=== PATIENT | female | born 1930 | race Caucasian/White ===

== ENCOUNTER → 2017-03-19 | Outpatient (CLI) | payer OTHER ==
[~2017-03-19] MED LIST: CALC500C70 PO; CHOL100010 PO; CLC100X PO; GABA1CAP PO; GLIM4TAB PO; INSDGI SC; LEVO50TA6 PO; LISI40TA PO; METO100T44 PO; MULTTAB58 PO; NIFE1TAB53 PO; OMEP20TA PO; POLY335025; PSYL58.611 PO; SITA50TA3 PO
--- NOTE | 2017-03-19 14:06 | DIAGNOSTIC IMAGING REPORT ---
ULTRASOUND OF THE CAROTID ARTERIES CLINICAL HISTORY: R EYE VISION LOSS COMPARISON STUDY: None. TECHNIQUE: Real-time, grayscale, and color Doppler sonography of the carotid arteries was performed. Imaging reviewed in the transverse and longitudinal planes. NASCET criteria was utilized for stenosis calcification. FINDINGS: There is moderate atherosclerotic plaque present bilaterally. The peak systolic velocity within the right internal carotid artery is 98 cm/sec. The systolic velocity ratio of right internal to common carotid artery is 1.4. The peak systolic velocity within the left internal carotid artery is 63 cm/sec. The systolic velocity ratio left internal to common carotid artery is 0.8. Antegrade flow is seen in the vertebral arteries. The external carotid arteries are patent. Blood pressure in the right arm measured 167 mm/Hg. Blood pressure in the left arm measured 156 mm/Hg. IMPRESSION: Bilateral atheromatous changes. No evidence of hemodynamically significant carotid stenosis. Electronically signed by: Stefano Patel M.D. 03/19/2017 2:05 PM Dictated Date/Time: 03/19/2017 2:04 PM
== END | disposition home or self-care (01) ==
LOC: C.ULTR 12:55
PROVIDERS: ATTEND Internal Medicine
DX: H54.61 Unqualified visual loss, right eye, normal vision left eye (principal)

== ENCOUNTER 2021-08-18 20:13 | Inpatient (IN) ==
[2021-08-18] MEDS ORDERED: FAMOTIDINE 20MG IV PUSH 20 MG/5 ML SYR IV STA (20:28)
[2021-08-18] MEDS ORDERED: ALUMINUM/MAGNESIUM SUSP 30 ML UDC PO STA (20:28)
--- NOTE | 2021-08-18 20:33 | Emergency Department Note ---
History of Present Illness General Chief complaint: Cardiac Assessment Stated complaint: CHEST BURNING/REFLUX TYPE FEELLING Time Seen by Provider: 08/18/21 20:18 Source: patient Mode of arrival: EMS Limitations: no limitations History of Present Illness Provider complaint: Chest burning, COVID-positive Onset (ago): day(s) 2 Location: chest Radiation: non-radiation Quality: + burning Relieved By: + none Exacerbated By: + eating and + medication Associated symptoms: + chest pain and + loss of appetite; no fever/chills, no nausea/vomiting or no shortness of breath Treatments prior to arrival: none This is an 89-year-old female presents emergency department via EMS due to concern for chest burning. Patient states symptoms began after taking Paxlovid 3 days ago she was tested and found to be positive for COVID. Patient states shortly after taking the first dose of Paxlovid she began having some chest burning. Patient states she has had cough, headaches, myalgias, decreased appetite, decreased weakness which she felt initially was related to the COVID. She states since the chest burning began it has been worse with eating, and she is hardly had anything to eat or drink. She denies any vomiting, black or blo marlin stools. She denies any history of GERD or peptic ulcer disease. Patient denies any history of heart problems. Pt seen during a time of high acuity and national emergency pandemic while wearing PPE. Home Medications Medication Instructions Recorded Confirmed Type Lisinopril (Zestril) 40 mg PO DAILY #0 05/24/08 History Metoprolol Succ (Toprol Xl) 100 mg PO DAILY #0 05/24/08 History (Toprol-Xl ) Insulin Glargine (Lantus) 8 unit SC HS #0 vial 12/15/12 History LEVOTHYROXINE SODIUM 50 mcg PO PRN #0 12/15/12 History MULTIPLE VITAMIN (MULTIVITAMIN) 1 tab PO DAILY #0 tab 12/15/12 History NIFEDIPINE (NIFEDIPINE ER) 30 mg PO DAILY #0 12/15/12 History OMEPRAZOLE 20 mg PO HS #0 12/15/12 History PSYLLIUM (METAMUCIL SMOOTH TEXTURE) 1 scoops PO BID PRN #0 12/15/12 History CHOLECALCIFEROL (Vitamin D) 1,000 inter.unit PO DAILY #0 tab 01/19/13 History DOCUSATE SODIUM (COLACE) 100 mg PO BID #0 cap 04/02/13 History POLYETHYLENE GLYCOL 3350 (MIRALAX) DAILY #0 04/02/13 History furosemide 20 mg tablet 20 mg PO DAILY 08/19/21 08/19/21 History linagliptin 5 mg tablet (Tradjenta) 5 mg PO DAILY 08/19/21 08/19/21 History Allergies Allergy/AdvReac Type Severity Reaction Status Date / Time pioglitazone Allergy Mild SWELLING Unverified 04/05/09 02:42 naproxen Allergy swelling Verified 01/19/13 12:38 of hands and face Past Med/Surg History Social History Smoking Status: Never smoker Hx Alcohol Use: No Hx Substance Use: No Preferred Language: Senegalese Forensic Accountant Required: No Current Living Situation: Family Feels Safe at Home: Yes Assistive Devices: Cane Review of Systems A total of 10 systems reviewed and were otherwise negative All systems reviewed & are unremarkable except as noted in HPI & below Physical Exam Vital Signs Vital Signs - 24 hr 08/18/21 20:25 08/18/21 20:31 08/18/21 22:35 Pulse Rate 63 Pulse Rate [Right Finger] 63 66 Pulse Rhythm Regular Pulse Rhythm [Right Finger] Pulse Strength Normal Respiratory Rate 16 16 15 Respiratory Effort / Characteristics Non-Labored Respiratory Depth Normal Blood Pressure 123/70 Blood Pressure [Right Arm] 123/70 114/54 L Blood Pressure Mean 87 Blood Pressure Mean [Right Arm] 87 74 Blood Pressure Position Lying Pulse Oximetry 98 96 93 Oxygen Delivery Method Room Air Room Air Room Air Sepsis Recent Fever Within 48 Hours No Sepsis New/Unexplained Change in Mental Status N/A Sepsis Action Taken by Nursing No Action Required Pulse Oximetry Post Tiitration 98 08/18/21 23:34 08/19/21 00:25 08/19/21 02:00 Pulse Rate Pulse Rate [Right Finger] 67 61 65 Pulse Rhythm Pulse Rhythm [Right Finger] Regular Pulse Strength Respiratory Rate 16 16 16 Respiratory Effort / Characteristics Respiratory Depth Blood Pressure Blood Pressure [Right Arm] 114/54 L 136/63 129/62 Blood Pressure Mean Blood Pressure Mean [Right Arm] 74 87 84 Blood Pressure Position Pulse Oximetry 98 97 95 Oxygen Delivery Method Sepsis Recent Fever Within 48 Hours Sepsis New/Unexplained Change in Mental Status Sepsis Action Taken by Nursing Pulse Oximetry Post Tiitration GENERAL: alert, uncomfortable appearing, well nourished, no distress, non-toxic, [place] [facility] EXAM: normal conjunctiva, PERRL and EOM's grossly intact OROPHARYNX: no exudate, no erythema, lips, buccal mucosa, and tongue normal and mucous membranes are moist NECK: supple, no nuchal rigidity, no adenopathy, non-tender LUNGS: Clear but decreased to auscultation. Normal chest wall mechanics, no w/r/r HEART: no murmurs, S1 normal and S2 normal ABDOMEN: abdomen soft, non-tender, normo-active bowel sounds, no masses, no rebound or guarding. BACK: Back is symmetrical on inspection and there is no deformity, no midline tenderness, no CVA tenderness. SKIN: no rashes and no bruising UPPER EXTREMITIES: upper extremities are grossly normal. FROM, nml pulses b/l. LOWER EXTREMITIES: No pitting edema. FROM, nml pulses b/l. NEURO EXAM: Normal sensorium, cranial nerves II-XII grossly intact, occasionally thick/slurred speech, no gross weakness of arms, no gross weakness of legs. Gross sensation intact. Course Course 2349: Updated patient and son at bedside on results. Per [facility] records obtained from case management, patient does have a history of hyponatremia although typically levels are around 129 or 130. Given patient's minimal oral intake over the last 2 days due to acute illness, I suspect this may be contributing to why her sodium is now 124. She states her pain is improved however still present. Son does states she does have a history of GERD and used to take medication for this. Administered Medications Heparin Sodium (Porcine) (Heparin Sod 5,000 Unit/0.5 Ml Vial) 5,000 units SQ Q8 [facility] Stop: 09/18/21 05:59 Last Admin: 08/19/21 22:45 Dose: 5,000 units Documented by: [id number] Admin: 08/19/21 15:18 Dose: Not Given Documented by: [id number] Admin: 08/19/21 08:25 Dose: 5,000 units Documented by: [id number] Pantoprazole Sodium 40 mg/ (Syringe) 10 mls @ 5 mls/min IV BID [facility] Stop: 09/18/21 08:59 Last Admin: 08/19/21 22:45 Dose: 5 mls/min Documented by: [id number] Admin: 08/19/21 12:45 Dose: Not Given Documented by: [id number] Sodium Chloride (Nss 1000ml) 1,000 mls @ 60 mls/hr IV .[id number] [facility] Stop: 08/21/21 00:19 Last Admin: 08/19/21 16:30 Dose: 60 mls/hr Documented by: [id number] Insulin Aspart (Insulin Aspart Per Unit) 0 units SC ACHS [facility] Stop: 09/18/21 07:29 Last Admin: 08/19/21 22:45 Dose: Not Given Documented by: [id number] Admin: 08/19/21 17:37 Dose: Not Given Documented by: [id number] Admin: 08/19/21 12:03 Dose: 7 units Documented by: [id number] Cosigned by: [id number] Admin: 08/19/21 10:13 Dose: 2 units Documented by: [id number] Cosigned by: [id number] Insulin Glargine (Insulin Glargine Solostar 100 Units/Ml 3 Ml Pen) 8 units SC HS [facility] Stop: 09/18/21 20:59 Last Admin: 08/19/21 22:52 Dose: 8 units Documented by: [id number] Cosigned by: [id number] Levothyroxine Sodium (Levothyroxine Sodium 50 Mcg Tablet) 50 mcg PO DAILYBB [facility] Stop: 09/18/21 10:14 Last Admin: 08/19/21 11:52 Dose: 50 mcg Documented by: [id number] Lisinopril (Lisinopril 40 Mg Tab) 40 mg PO DAILY [facility] Stop: 09/18/21 10:29 Last Admin: 08/19/21 11:52 Dose: 40 mg Documented by: [id number] Metoprolol Succinate (Metoprolol Succ 50mg Ext Rel Tab) 100 mg PO DAILY [facility] Stop: 09/18/21 10:29 Last Admin: 08/19/21 11:52 Dose: 100 mg Documented by: [id number] Nifedipine (Nifedipine Extended Rel 30 Mg Tabcr) 30 mg PO DAILY [facility] Stop: 09/18/21 10:29 Last Admin: 08/19/21 11:52 Dose: 30 mg Documented by: [id number] Ondansetron HCl (Ondansetron Inj 2 Mg/Ml 2 Ml Vial) 4 mg IV Q6H PRN PRN Reason: Nausea Stop: 09/18/21 05:40 Last Admin: 08/19/21 06:46 Dose: 4 mg Documented by: [id number] Sucralfate (Sucralfate 1 Gm Tab) 1 gm PO QID [facility] Stop: 09/18/21 08:59 Last Admin: 08/19/21 22:45 Dose: 1 gm Documented by: [id number] Admin: 08/19/21 17:38 Dose: Not Given Documented by: [id number] Admin: 08/19/21 11:54 Dose: 1 gm Documented by: [id number] Admin: 08/19/21 08:25 Dose: 1 gm Documented by: [id number] Discontinued Medications Al Hydrox/Mg Hydrox/Simethicone (Aluminum/Magnesium Susp 30 Ml Udc) 15 ml PO NOW STA Stop: 08/18/21 20:29 Last Admin: 08/18/21 20:38 Dose: 15 ml Documented by: [id number] Al Hydrox/Mg Hydrox/Simethicone (Aluminum/Magnesium Susp 30 Ml Udc) 15 ml PO NOW STA Stop: 08/19/21 01:24 Last Admin: 08/19/21 01:30 Dose: 15 ml Documented by: [id number] Famotidine (Pepcid 20mg Iv Push) 20 mg in 5 mls @ 2.5 mls/min IV NOW STA Stop: 08/18/21 20:29 Last Admin: 08/18/21 20:39 Dose: 2.5 mls/min Documented by: [id number] Sodium Chloride (Nss 1000ml) 1,000 mls @ 125 mls/hr IV .Q8H [facility] Stop: 09/17/21 21:29 Last Admin: 08/19/21 06:01 Dose: Not Given Documented by: [id number] Infusion: 08/19/21 05:54 Dose: 0 mls/hr Documented by: [id number] Admin: 08/18/21 22:09 Dose: 125 mls/hr Documented by: [id number] Ioversol (Optiray 320 125ml) 120 ml IV ONCE ONE Stop: 08/18/21 22:01 Last Admin: 08/18/21 22:00 Dose: 120 ml Documented by: [id number] Olanzapine (Olanzapine 10 Mg/2.1 Ml Sdv) 2.5 mg IM NOW STA Stop: 08/19/21 19:44 Last Admin: 08/19/21 19:56 Dose: 2.5 mg Documented by: [id number] Sucralfate (Sucralfate 1 Gm Tab) 1 gm PO NOW STA Stop: 08/19/21 05:42 Last Admin: 08/19/21 06:46 Dose: 1 gm Documented by: [id number] Medical Decision Making Differential Diagnosis Differential diagnoses includes but is not limited to acute coronary syndrome, myocardial infarction, pericarditis, pulmonary embolus, aortic dissection, pneumonia, pneumothorax, musculoskeletal, shingles, esophageal. Medical Records Attestation: I reviewed the patient's medical records. Home Medications Current Medication List: was personally reviewed by me Laboratory Data Attestation: I reviewed the patient's lab results. Result diagrams: 08/19/21 07:28 08/19/21 19:17 Lab Results 08/18/21 08/18/21 08/18/21 Range/Units 20:08 20:08 20:08 WBC 11.17 H (4.8-10.8) K/uL RBC 3.90 L (4.2-5.4) M/uL Hgb 12.4 (12.0-16.0) g/dL Hct 35.6 L (37-47) % MCV 91.3 (80-100) fL MCH 31.8 (25-34) pg MCHC 34.8 (32-36) g/dL RDW Std Deviation 44.2 (36.4-46.3) fL RDW Coeff of Jonathan 13.4 (11.5-14.5) % Plt Count 207 (130-400) K/uL MPV 9.9 (7.4-10.4) fL Immature Gran % (Auto) 0.4 % Neut % (Auto) 77.2 % Lymph % (Auto) 14.3 % [place] % (Auto) 7.3 % Eos % (Auto) 0.7 % Baso % (Auto) 0.1 % Neut # (Auto) 8.62 H (1.4-6.5) K/uL Lymph # (Auto) 1.60 (1.2-3.4) K/uL [place] # (Auto) 0.82 H (0.11-0.59) K/uL Eos # (Auto) 0.08 (0-0.5) K/uL Baso # (Auto) 0.01 (0-0.2) K/uL Immature Gran # (Auto) 0.04 H (0.00-0.02) K/uL D-Dimer 1290 H* (0-500) ug/L FEU Sodium 124 L (136-145) mmol/L Potassium 4.5 (3.5-5.1) mmol/L Chloride 92 L (98-107) mmol/L Carbon Dioxide 22 (21-32) mmol/L Anion Gap 10 (3-11) BUN 37 H (6-23) mg/dl Creatinine 1.57 H (0.6-1.2) mg/dl Est Cr Clr Drug Dosing 16.9 ml/min Est GFR ( Amer) 33.8 ml/min Est GFR (Non-Af Amer) 29.1 ml/min BUN/Creatinine Ratio 23.6 H (10-20) Glucose 193 H (70-99(Fasting)) mg/dl Calcium 9.0 (8.5-10.1) mg/dl Magnesium 1.7 (1.7-2.4) mg/dl Total Bilirubin 0.8 (0.2-1.0) mg/dl AST 29 (13-39) U/L ALT 15 (7-52) U/L Alkaline Phosphatase 58 (34-104) U/L Troponin I High Sens 12.6 (0-14) pg/ml Total Protein 6.9 (6.0-8.3) gm/dl Albumin 4.0 (3.4-5.0) gm/dl Globulin 2.9 (2.5-4.0) gm/dl Albumin/Globulin Ratio 1.4 (0.9-2) Lipase 31 (11-82) U/L SARS-CoV-2 (PCR) (Negative) Influenza Type A (PCR) (Neg) Influenza Type B (PCR) (Neg) RSV (RT-PCR) (Neg) 08/19/21 Range/Units 01:44 WBC (4.8-10.8) K/uL RBC (4.2-5.4) M/uL Hgb (12.0-16.0) g/dL Hct (37-47) % MCV (80-100) fL MCH (25-34) pg MCHC (32-36) g/dL RDW Std Deviation (36.4-46.3) fL RDW Coeff of Jonathan (11.5-14.5) % Plt Count (130-400) K/uL MPV (7.4-10.4) fL Immature Gran % (Auto) % Neut % (Auto) % Lymph % (Auto) % [place] % (Auto) % Eos % (Auto) % Baso % (Auto) % Neut # (Auto) (1.4-6.5) K/uL Lymph # (Auto) (1.2-3.4) K/uL [place] # (Auto) (0.11-0.59) K/uL Eos # (Auto) (0-0.5) K/uL Baso # (Auto) (0-0.2) K/uL Immature Gran # (Auto) (0.00-0.02) K/uL D-Dimer (0-500) ug/L FEU Sodium (136-145) mmol/L Potassium (3.5-5.1) mmol/L Chloride (98-107) mmol/L Carbon Dioxide (21-32) mmol/L Anion Gap (3-11) BUN (6-23) mg/dl Creatinine (0.6-1.2) mg/dl Est Cr Clr Drug Dosing ml/min Est GFR ( Amer) ml/min Est GFR (Non-Af Amer) ml/min BUN/Creatinine Ratio (10-20) Glucose (70-99(Fasting)) mg/dl Calcium (8.5-10.1) mg/dl Magnesium (1.7-2.4) mg/dl Total Bilirubin (0.2-1.0) mg/dl AST (13-39) U/L ALT (7-52) U/L Alkaline Phosphatase (34-104) U/L Troponin I High Sens (0-14) pg/ml Total Protein (6.0-8.3) gm/dl Albumin (3.4-5.0) gm/dl Globulin (2.5-4.0) gm/dl Albumin/Globulin Ratio (0.9-2) Lipase (11-82) U/L SARS-CoV-2 (PCR) POSITIVE A* (Negative) Influenza Type A (PCR) Negative (Neg) Influenza Type B (PCR) Negative (Neg) RSV (RT-PCR) Negative (Neg) Imaging Data My Impression: X-ray: I interpreted the following studies. Chest: A single view study of the chest was reviewed and was negative for cardiomegaly, focal infiltrate, effusion, pulmonary edema, or wide mediastinum. Radiologist's Impression: CTA chest: No pulmonary embolism. 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 Mucosal thickening in the esophagus suggestive of esophagitis. Nonspecific mosaic attenuation of the lungs. No consolidation or overt edema. No pleural effusion. Radiologist: Arsenio Rodríguez MD ECG Data Attestation: I personally reviewed and interpreted this ECG as follows: Indication: + chest pain Rate (beats per minute): 66 Rhythm: + normal sinus ECG Intervals/blocks: + Normal QRS and + Normal QT ECG [place]: + Normal ECG ST segments: + Nonspecific ST abnormalities MDM Narrative An order was placed for continuous cardiac monitoring. The monitor shows a rate of _65__ with _normal sinus__ rhythm. This is an 82-year-old female presents emergency department due to concern for chest pain. Patient with recent diagnosis of COVID did begin taking Paxlovid prescribed by her outpatient provider. EKG reassuring, patient hemodynamically stable. Labs drawn and sent as a precaution. While troponin was negative, D-d tab was markedly elevated and patient was sent for CT imaging. CT did reveal evidence of esophagitis, no evidence of PE, dissection, or pericardial effusion. Upon family arriving at bedside they state patient does have a prior history of GERD although does not currently take any medications. It is unclear if this is a side effect of the medication versus a side effect from decreased oral intake during her acute illness. Patient's symptoms were markedly improved following Pepcid and Maalox although not entirely resolved. All results were discussed with the patient and son at bedside. Patient does have a history of hyponatremia as reviewed in a prior note from her PCP, her sodium is much lower than prior levels and I suspect due to decreased oral intake. Due to advanced age, markedly low sodium, clinical dehydration, persistent chest pain, case discussed with hospitalist for additional evaluation and management. Impression & Plan Chest pain, COVID-19, Esophagitis Discharge Plan Visit Data Chief Complaint: Cardiac Assessment Stated Complaint: CHEST BURNING/REFLUX TYPE FEELLING ED Provider: Meredith Meek Discharge Problem: Chest pain, COVID-19, Esophagitis Patient Disposition: Admitted As Inpatient Discharge Instructions Interventions: ED Discharge Assessment Last Done: 08/19/21 05:37 Discharge Problem: Chest pain Qualifiers: Chest pain type: unspecified Qualified Code(s): R07.9 - Chest pain, unspecified
[2021-08-18 20:40] LABS: Basophils # (auto) 0.01 K/uL (0-0.2); Basophils % (auto) 0.1 %; Eosinophils # (auto) 0.08 K/uL (0-0.5); Eosinophils % (auto) 0.7 %; Hematocrit (blood only) 35.6 % (37-47); Hemoglobin 12.4 g/dL (12.0-16.0); Immature Granulocytes # (auto) 0.04 K/uL (0.00-0.02); Immature Granulocytes % (auto) 0.4 %; Lymphocytes % (auto) 14.3 %; Mean Corpuscular Hemoglobin 31.8 pg (25-34); Mean Corpuscular Hgb Conc 34.8 g/dL (32-36); Mean Corpuscular Volume 91.3 fL (80-100); Mean Platelet Volume 9.9 fL (7.4-10.4); Monocytes # (auto) 0.82 K/uL (0.11-0.59); Monocytes % (auto) 7.3 %; Neutrophils # (auto) 8.62 K/uL (1.4-6.5); Neutrophils % (auto) 77.2 %; Platelet Count 207 K/uL (130-400); RDW Coefficient of Variation 13.4 % (11.5-14.5); RDW Standard Deviation 44.2 fL (36.4-46.3); White Blood Count 11.17 K/uL (4.8-10.8)
[2021-08-18 21:06] LABS: Albumin Globulin Ratio 1.4 (0.9-2); BUN Creatinine Ratio 23.6 (10-20); Bilirubin,Total 0.8 mg/dl (0.2-1.0); Creatinine Clr Calc Pharmacy 16.9 ml/min; Est GFR (African American) 33.8 ml/min; Est GFR (Non-African American) 29.1 ml/min; Globulin 2.9 gm/dl (2.5-4.0); Magnesium 1.7 mg/dl (1.7-2.4); Potassium 4.5 mmol/L (3.5-5.1); Total Protein 6.9 gm/dl (6.0-8.3)
[2021-08-18 21:07] LABS: Troponin I High Sensitivity 12.6 pg/ml (0-14)
[2021-08-18 21:14] LABS: D Dimer 1290 ug/L FEU (0-500)
[2021-08-18] MEDS ORDERED: OPTIRAY 320 125ml IV ONE (22:00)
[2021-08-18] MEDS: SODIUM CHLORIDE 0.9% 1000ML 1,000 ML IV SCH (22:09)
[2021-08-19] MEDS ORDERED: ALUMINUM/MAGNESIUM SUSP 30 ML UDC PO STA (01:23)
[2021-08-19 02:39] LABS: Influenza A virus by PCR Negative (Neg); Influenza B virus by PCR Negative (Neg); RSV by PCR Negative (Neg)
[2021-08-19 02:49] LABS: SARS CoV2 RNA(COVID-19) InHosp POSITIVE (Negative)
[2021-08-19] MEDS ORDERED: MoRPHine SULFATE 2 MG/ML CARP IV PRN (05:41)
[2021-08-19] MEDS ORDERED: SUCRALFATE 1 GM TAB PO STA (05:41)
[2021-08-19] MEDS ORDERED: NITROGLYCERIN SL 0.4 MG/TAB TAB SL PRN (05:41)
[2021-08-19] MEDS ORDERED: ACETAMINOPHEN 325 MG TAB PO PRN (05:41)
[2021-08-19] MEDS ORDERED: ONDANSETRON INJ 2 MG/ML 2 ML VIAL IV PRN (05:41)
[2021-08-19] MEDS: SODIUM CHLORIDE 0.9% 1000ML 1,000 ML IV SCH ×2 (06:01→16:30)
[2021-08-19] MEDS ORDERED: GLUCAGON FOR INJ 1 MG VIAL IM PRN (06:30)
[2021-08-19] MEDS ORDERED: GLUCOSE 10 TABS/TUBE PO PRN (06:30)
[2021-08-19] MEDS ORDERED: DEXTROSE 50% 50 ML SYRINGE IV PRN (06:30)
[2021-08-19] MEDS ORDERED: GLUCOSE 40% GEL 15 GM TUBE PO PRN (06:30)
[2021-08-19] MEDS ORDERED: CARBOHYDRATES FOR HYPOGLYCEMIA PO PRN (06:30)
--- NOTE | 2021-08-19 07:11 | XRay Report ---
XR chest 1V portable CLINICAL HISTORY: chest pain. COMPARISON STUDY: 12/15/2012 TECHNIQUE: 1 view of the chest FINDINGS: Single frontal view of the chest demonstrates the cardiomediastinal silhouette to be within normal li mits. The lungs are clear of alveolar opacities. There is no evidence for pleural effusion. There is no evidence for vascular congestion. There is no acute osseous pathology. IMPRESSION: 1. No acute cardiopulmonary disease. ACT 112: Negative or not required by law. Electronically signed by: César Bonner M.D. 08/19/2021 7:09 AM
--- NOTE | 2021-08-19 07:28 | CT Scan Report ---
CT angio chest PE protocol CLINICAL HISTORY: Burning in the chest. COMPARISON STUDY: Portable chest from 08/18/2021 CT DOSE: 202.44 mGy.cm TECHNIQUE: CT Angio of the chest was performed.followed by image post processing with coronal, and s agittal MIP reformats. Contrast Volume: Optiray 320, 120 ml FINDINGS: Vasculature: There is homogeneous perfusion of the pulmonary vasculature bilaterally. No intraluminal filling defects or evidence for pulmonary embolus is seen. Airway: The airway is clear. No endobronchial lesion is identified. Lungs: There is breathing motion artifact present. Dependent edema is seen at the lung bases. Mild to moderate centrilobular emphysematous changes are seen particularly involving the upper lobes bilater ally. The lungs are otherwise clear of acute alveolar opacities, air bronchograms or pulmonary nodule s. Pleura: There is no evidence for pleural effusion. There is no evidence for pneumothorax. Mediastinum: There is no evidence for pathologic adenopathy. The heart size is within normal limits. There is coronary artery calcification. This calcification of the mitral valve. The thoracic aorta is within normal limits. Atherosclerotic calcification is present, particularly involving the origin of the right subclavian artery. There is evidence for stenosis at this site. There is no evidence for p ericardial effusion. Esophagus: There is evidence for diffuse mucosal thickening along the entire course of the esophagus. This could be the etiology of the patient's burning chest pain. Follow-up to evaluate for esophagiti s is recommended. Mucosal thickening extends to the esophagogastric junction. Osseous structures: There is no acute osseous pathology. Impression: 1. No CTA evidence for pulmonary embolus. 2. No acute chest disease. There is breathing motion artifact present. 3. There is underlying mild to moderate centrilobular emphysematous changes particularly involving th e upper lobes bilaterally. 4. Evidence for extensive atherosclerotic calcification involving the aortic arch and origin of the r ight subclavian artery. The findings are highly suspicious for stenosis. 5. Diffuse mucosal thickening involving the entire course of the esophagus and at the GE junction. Th e findings are suspicious for esophagitis. Follow-up endoscopy is recommended. ACT 112: Positive. There are findings on this exam that require communication between the performing entity and the patient following Patient Test Result Information Act ([place] Act 112) guidelines. Electronically signed by: César Bonner M.D. 08/19/2021 7:27 AM
--- NOTE | 2021-08-19 07:46 | History and Physical Report ---
DATE OF ADMISSION: 08/19/2021. CHIEF COMPLAINT: COVID and chest burning sensation. HISTORY OF PRESENT ILLNESS: This is an 89-year-old female with past medical history significant for type 2 diabetes, hyperlipidemia, chronic kidney disease stage III, hypertension, hypothyroidism, chronic rhinitis, uncomplicated bronchiectasis, diastolic dysfunction, reflux esophagitis, osteoporosis, spinal stenosis of lumbar region, vision loss of right eye, history of squamous cell carcinoma in situ, who lives at home with her and son and family. The patient was brought in because of burning sensation in chest and throat. The patient was diagnosed with COVID a few days back and she was started on Paxlovid soon after that. Seems to have taken a couple of doses of Paxlovid and the patient states after taking Paxlovid, she developed severe burning sensation of the chest and also in the throat. She says she cried at home and was brought in here. The patient is very hard of hearing. Her hearing aid is also not working. Tried to call the family, but was not able to reach them. The patient says she has some cough, spitting stuff. Denies any shortness of breath. Denies vomiting, denies any abdominal pain. She says she moved her bowels okay. No headache. Currently, resting comfortably and hemodynamically stable, but still has some burning sensation throughout in the chest. It started after taking Paxlovid. It is very difficult to get history from the patient. The patient is very hard of hearing. Does not know whether she is vaccinated or not. Imaging studies done in the ER showed CTA chest done, there is no PE, but showing esophagitis. No obvious infiltrates of the lung seen on the CAT scan. She is saturating fine on room air. ALLERGIES: PIOGLITAZONE, NAPROXEN. PAST MEDICAL HISTORY: As mentioned above. PAST SURGICAL HISTORY: EGDs, laparoscopic cholecystoenterostomy, ligation and biopsy of left temporal artery, appendectomy, vaginal hysterectomy. MEDICATIONS: Per [facility], the patient is on nifedipine ER 30 mg p.o. daily, Paxlovid 1 tablet 2 times daily, Lasix 20 mg daily, mirtazapine 7.5 mg p.o. daily, Lantus 8 units subcutaneous p.o. at bedtime, levothyroxine 50 mcg daily, linagliptin 5 mg p.o. daily, lisinopril 40 mg p.o. daily, Toprol-XL 100 mg p.o. daily, albuterol 2 puffs inhalation q. 6 hours p.r.n., MiraLax 17 g daily, vitamin D 1000 units p.o. daily. FAMILY HISTORY: Significant for mother has COPD, diabetes, DC; sister has lung disorder, cervical cancer. SOCIAL HISTORY: . No smoking, no alcohol, no drug use. REVIEW OF SYSTEMS: As per HPI. Could not get complete review of systems as the patient is very hard of hearing. PHYSICAL EXAMINATION: GENERAL: The patient is old and frail, not in acute distress. VITAL SIGNS: Temperature afebrile, pulse 61, respiratory rate 16, blood pressure 136/63, oxygen 97% on room air. HEENT: Pupils equal, round and reactive to light. Oral mucosa moist. NECK: No JVD, no neck masses. CARDIOVASCULAR: S1 and S2 heard. Regular rate and rhythm. No murmur, no gallop. RESPIRATORY SYSTEM: Normal AP diameter. No accessory muscle use. No wheezing, no crackles. ABDOMEN: Soft. Bowel sounds are present, nontender, no distention. CENTRAL NERVOUS SYSTEM: Alert and awake. Hard of hearing. Speech is clear. No facial droop. Obeys simple commands. Moves extremities. EXTREMITIES: No edema, no erythema. LABORATORY DATA: WBC 11.17, hemoglobin 12.4, hematocrit 35.6, platelets 207. D-dimer 1290. Sodium 124, potassium 4.5, chloride 92, CO2 of 22, BUN 37, creatinine 1.57, serum glucose 193, calcium 9, magnesium 1.7, total bilirubin 0.8, AST 29, ALT 15, alkaline phosphatase 58. Troponin 1 high sensitivity 12.6, lipase 31. IMAGING DATA: CTA chest, no PE. Mucosal thickening in the esophagus suggestive of esophagitis. No consolidation or edema, no pleural effusions. EKG: Normal sinus rhythm at a rate of 66, nonspecific T-wave abnormality seen. ASSESSMENT AND PLAN: This is an 89-year-old female who was recently diagnosed with COVID and started on Paxlovid, comes with burning sensation in the chest and throat pain. 1. Burning sensation with chest pain and throat pain: CTA chest, no PE, but troponin is negative. EKG, no acute findings. Most likely secondary to reflux symptoms as CT scan is showing esophagitis. Received Pepcid and Maalox in the ER. Will place on Protonix and sucralfate. Full liquid diet and monitor in the hospital. The patient cannot have Paxlovid in the hospital. 2. COVID: Vaccine status unknown. Tried to call the family and was not able to reach. Saturating fine on room air. CTA chest is okay. Will monitor. 3. Hyponatremia: Sodium 124, probably because of poor intake from her symptoms from her COVID. Got fluids in the ER. Will follow the repeat labs, BMP q. 6 hours. Check serum osmolality, urine osmolality, and serum sodium level and consult nephrology in the a.m. 4. Diabetes: Hold her p.o. medications. Continue her Lantus. Placed on insulin sliding scale. Follow blood sugars, follow HbA1c levels. 5. FERNANDO on Chronic kidney disease stage III: Baseline creatinine is around 1.1 to 1.2, currently creatinine is 1.5. Got fluids. Follow the labs in a.m. 6. Hypothyroidism: Continue home Synthroid. 7. Hypertension: Her Nifedipine was decreased from 60 to 30 when she was started on Paxlovid for 8 days. Will continue 30 mg here Continue, lisinopril and metoprolol. Will monitor the blood pressure. 8. History of chronic diastolic congestive heart failure: Will hold the Lasix for now as the patient has hyponatremia.Monitor for volume overload. 9. Deep venous thrombosis prophylaxis: Heparin subcutaneously. DISPOSITION: Closely monitor in the [facility]. PT/OT prior to discharge. Social service to help with discharge planning. Job ID: [id number] MTDD
[2021-08-19] MEDS: HEPARIN SOD 5,000 UNIT/0.5 ML VIAL SQ SCH ×3 (08:25→22:45)
[2021-08-19] MEDS: SUCRALFATE 1 GM TAB PO SCH ×4 (08:25→22:45)
[2021-08-19 08:41] LABS: Eosinophils # (auto) 0.01 K/uL (0-0.5); Eosinophils % (auto) 0.1 %; Hematocrit (blood only) 36.3 % (37-47); Hemoglobin 12.5 g/dL (12.0-16.0); Immature Granulocytes # (auto) 0.02 K/uL (0.00-0.02); Immature Granulocytes % (auto) 0.2 %; Lymphocytes % (auto) 4.9 %; Mean Corpuscular Hemoglobin 31.6 pg (25-34); Mean Corpuscular Hgb Conc 34.4 g/dL (32-36); Mean Corpuscular Volume 91.9 fL (80-100); Mean Platelet Volume 10.4 fL (7.4-10.4); Monocytes # (auto) 0.68 K/uL (0.11-0.59); Monocytes % (auto) 5.5 %; Neutrophils # (auto) 11.04 K/uL (1.4-6.5); Neutrophils % (auto) 89.3 %; Platelet Count 210 K/uL (130-400); RDW Coefficient of Variation 13.5 % (11.5-14.5); RDW Standard Deviation 45.3 fL (36.4-46.3); Red Blood Count 3.95 M/uL (4.2-5.4); White Blood Count 12.35 K/uL (4.8-10.8)
[2021-08-19 08:54] LABS: Troponin I High Sensitivity 11.3 pg/ml (0-14)
[2021-08-19 08:55] LABS: BUN Creatinine Ratio 25.8 (10-20); Calcium 8.6 mg/dl (8.5-10.1); Creatinine Clr Calc Pharmacy 22.8 ml/min; Est GFR (African American) 43.2 ml/min; Est GFR (Non-African American) 37.3 ml/min; Magnesium 1.8 mg/dl (1.7-2.4); Potassium 4.4 mmol/L (3.5-5.1)
[2021-08-19 09:49] LABS: Estimated Average Glucose 131 mg/dl; Hemoglobin A1C 6.2 % (4.5-5.6)
[2021-08-19] MEDS: INSULIN ASPART PER UNIT SC SCH ×4 (10:13→22:45)
--- NOTE | 2021-08-19 11:44 | CT Scan Report ---
CT head/brain wo con CLINICAL HISTORY: fall, hit head . Pain COMPARISON STUDY: No previous studies for comparison. CT DOSE: 537.48 mGy.cm TECHNIQUE: Standard CT of the Brain was performed without IV contrast. A dose lowering technique was utilized adhering to the principles of ALARA. FINDINGS: Extraaxial space: There is no evidence for subdural hematoma. There are no extra-axial fluid collecti ons. Ventricles and cisterns: The ventricles are mildly dilated bilaterally. There is no evidence for midl ine shift or mass effect. Parenchyma: There is no subarachnoid or intraparenchymal hemorrhage. There is no evidence for an acut e infarct or cerebral edema. There is mild to moderate cerebral cortical atrophy and decreased attenu ation in the periventricular white matter representing remote small vessel disease. There are no kirby s mass lesions. Osseous structures: There is no evidence for an acute fracture. The visualized paranasal sinuses are clear. The mastoid air cells are clear bilaterally. Soft tissues: There is no evidence for focal soft tissue swelling. IMPRESSION: 1. No acute intracerebral pathology. 2. Cerebral cortical atrophy and remote small vessel disease. ACT 112: Negative or not required by law. Electronically signed by: César Bonner M.D. 08/19/2021 11:43 AM
[2021-08-19] MEDS: lisinopril 40 MG TAB PO SCH (11:52)
[2021-08-19] MEDS: LEVOTHYROXINE SODIUM 50 MCG TABLET PO SCH (11:52)
[2021-08-19] MEDS: METOPROLOL SUCC 50MG EXT REL TAB PO SCH (11:52)
[2021-08-19] MEDS: NIFEdipine EXTENDED REL 30 MG TABCR PO SCH (11:52)
[2021-08-19] MEDS: PANTOprazole 40 MG in SYRINGE 0 ML IV SCH ×2 (12:45→22:45)
--- NOTE | 2021-08-19 13:23 | Electrocardiogram Report ---
Test Reason : Blood Pressure : / mmHG Vent. Rate : 066 BPM Atrial Rate : 066 BPM P-R Int : 170 ms QRS Dur : 076 ms QT Int : 416 ms P-R-T Axes : 039 -04 077 degrees QTc Int : 436 ms Normal sinus rhythm Inferior infarct , age undetermined Abnormal ECG When compared with ECG of 15-DEC-2012 15:31, Vent. rate has decreased BY 33 BPM Inferior infarct is now Present Nonspecific T wave abnormality now evident in Anterolateral leads Confirmed by Jorge Mclean ([id number]) on 08/19/2021 1:23:13 PM Referred By: REFERRED SELF Confirmed By:Jorge Mclean
[2021-08-19 13:47] LABS: BUN Creatinine Ratio 24.6 (10-20); Calcium 8.8 mg/dl (8.5-10.1); Creatinine Clr Calc Pharmacy 21.7 ml/min; Est GFR (African American) 40.9 ml/min; Est GFR (Non-African American) 35.3 ml/min; Potassium 4.6 mmol/L (3.5-5.1)
--- NOTE | 2021-08-19 14:36 | Communication Note ---
Date of Service: August 19, 2021 89-year-old lady with PMH of T2DM, HLD, CKD stage III, HTN, hypothyroidism, chronic rhinitis, uncomplicated bronchiectasis, diastolic dysfunction, reflux es ophagitis, osteoporosis, spinal stenosis of lumbar region, vision loss of right eye, history of squamous cell carcinoma in situ, presenting from the home [lives with and son] 08/18 to our ED with complaint of burning sensation of chest and throat. Of note, she was recently diagnosed with COVID and had taken Paxlovid soon after that. She also has h/o of reflux esophagitis. Patient is being managed for worsening reflux esophagitis, COVID infection, hyponatremia, FERNANDO over CKD. Patient with no complaints of epigastric burning/pain, on room air, failed overnight--> sent CT head, sodium improving, follow-up BMP every 6 hours, expect sodium to improve with improvement in diet/improvement in her epigastric burning or pain. Will continue w/ ivf now. Patient examined at bedside, on room air, resting comfortably, heart lungs and abdomen examination fairly WNL. Discussed with patient's son Pacheco over the phone, patient was diagnosed with COVID last or Wednesday, had received 3 doses of Paxolivid (1.5 days), not vaccinated against COVID, very hard of hearing, alert and oriented at baseline. Labs and imaging were reviewed. For further information on the patient, see today's H&P note.
[2021-08-19] MEDS ORDERED: OLANZapine 10 MG/2.1 ML SDV IM PRN (19:43)
[2021-08-19] MEDS ORDERED: OLANZapine 10 MG/2.1 ML SDV IM STA (19:43)
[2021-08-19 20:05] LABS: Calcium 8.4 mg/dl (8.5-10.1); Creatinine Clr Calc Pharmacy 22.9 ml/min; Est GFR (African American) 43.6 ml/min; Est GFR (Non-African American) 37.6 ml/min; Potassium 4.5 mmol/L (3.5-5.1)
[2021-08-19] MEDS ORDERED: INSULIN GLARGINE SC SCH (21:00)
[2021-08-19] MEDS ORDERED: INSULIN GLARGINE SOLOSTAR 100 UNITS/ML 3 ML PEN SC SCH (21:00)
[2021-08-19 21:06] LABS: Appearance Urine Cloudy (Clear); Bacteria Urine Automated 4+ (Negative); Bilirubin Urine Negative (Negative); Blood Urine Negative (Negative); Color Urine Yellow; Epithelial Cell Urine Auto 0-5 /lpf (0-5); Glucose Urine UA Negative (Negative); Ketones Urine Trace (Negative); Leukocyte Esterase Urine 2+ (Negative); Nitrite Urine Negative (Negative); Protein Urine 1+ (Negative); RBC Urine Automated 0-4 /hpf (0-4); Specific Gravity Urine > 1.045 (1.000-1.030); Urobilinogen Urine Negative (Negative); WBC Urine Automated >30 /hpf (0-5); pH Urine 6.5 (4.5-7.5)
[2021-08-20] MEDS: LEVOTHYROXINE SODIUM 50 MCG TABLET PO SCH (06:16)
[2021-08-20] MEDS: HEPARIN SOD 5,000 UNIT/0.5 ML VIAL SQ SCH ×3 (06:16→20:41)
[2021-08-20] MEDS: MULTIVITAMIN TAB PO SCH (07:57)
[2021-08-20] MEDS: CHOLECALCIFEROL 1,000 UNITS 25 MCG TAB PO SCH (07:58)
[2021-08-20] MEDS: INSULIN ASPART PER UNIT SC SCH ×4 (07:58→20:40)
[2021-08-20] MEDS: METOPROLOL SUCC 50MG EXT REL TAB PO SCH (08:01)
[2021-08-20] MEDS: NIFEdipine EXTENDED REL 30 MG TABCR PO SCH (08:01)
[2021-08-20] MEDS: SUCRALFATE 1 GM TAB PO SCH ×4 (08:01→20:41)
[2021-08-20] MEDS: lisinopril 40 MG TAB PO SCH (08:01)
[2021-08-20] MEDS: PANTOprazole 40 MG in SYRINGE 0 ML IV SCH ×2 (08:03→20:41)
[2021-08-20] MEDS ORDERED: FUROSEMIDE 20 MG TAB PO SCH (09:00)
[2021-08-20 09:26] LABS: Hematocrit (blood only) 33.2 % (37-47); Hemoglobin 11.3 g/dL (12.0-16.0); Mean Corpuscular Hemoglobin 32.2 pg (25-34); Mean Corpuscular Volume 94.6 fL (80-100); Mean Platelet Volume 10.5 fL (7.4-10.4); Platelet Count 176 K/uL (130-400); RDW Coefficient of Variation 13.6 % (11.5-14.5); RDW Standard Deviation 46.9 fL (36.4-46.3); Red Blood Count 3.51 M/uL (4.2-5.4)
[2021-08-20 09:49] LABS: BUN Creatinine Ratio 23.5 (10-20); Calcium 8.4 mg/dl (8.5-10.1); Creatinine Clr Calc Pharmacy 24.5 ml/min; Est GFR (African American) 47.2 ml/min; Est GFR (Non-African American) 40.7 ml/min; Phosphorus 2.7 mg/dl (2.5-4.9); Potassium 4.3 mmol/L (3.5-5.1)
[2021-08-20] MEDS: SODIUM CHLORIDE 0.9% 1000ML 1,000 ML IV SCH (10:12)
--- NOTE | 2021-08-20 12:33 | Electrocardiogram Report ---
Test Reason : Blood Pressure : / mmHG Vent. Rate : 058 BPM Atrial Rate : 058 BPM P-R Int : 184 ms QRS Dur : 074 ms QT Int : 408 ms P-R-T Axes : 046 -05 076 degrees QTc Int : 400 ms Sinus bradycardia Low voltage QRS Nonspecific T wave abnormality Abnormal ECG When compared with ECG of 18-AUG-2021 20:25, No significant change was found Confirmed by Jorge Mclean ([id number]) on 08/20/2021 12:33:22 PM Referred By: REFERRED SELF Confirmed By:Jorge Mclean
--- NOTE | 2021-08-20 18:43 | Hospitalist Progress Note ---
Date of Service August 20, 2021 Assessment & Plan (1) Esophagitis: (2) COVID-19: Plan: This is an 89-year-old female who was recently diagnosed with COVID and started on Paxlovid, comes with burning sensation in the chest and throat pain. 1. Burning sensation with chest pain and throat pain: CTA chest, no PE, troponin is negative. EKG, no acute findings. Most likely secondary to reflux symptoms as CT scan is showing esophagitis. Received Pepcid and Maalox in the ER. Started Protonix and sucralfate on admission. Full liquid diet and monitor in the hospital. The patient cannot have Paxlovid in the hospital. 2. +COVID:Patient not vaccinated, per family. Saturating well on room air. CTA chest is unremarkable. Will monitor. 3. Hyponatremia: Sodium 124 on admission, probably because of poor intake from her symptoms from her COVID. Got fluids in the ER. Checked serum osmolality, urine osmolality, and serum sodium level Current na improved at 130 Consult Nephrology if poor improvement 4. Diabetes: Hold her p.o. medications. Continue her Lantus. Placed on insulin sliding scale. Follow blood sugars, follow HbA1c levels. 5. FERNANDO on Chronic kidney disease stage III: Baseline creatinine is around 1.1 to 1.2, on admission creatinine is 1.5. Got fluids. Follow BMP. 6. Hypothyroidism: Continue home Synthroid. 7. Hypertension: Her Nifedipine was decreased from 60 to 30 when she was started on Paxlovid for 8 days. Will continue 30 mg here Continue, lisinopril and metoprolol. Will monitor the blood pressure. 8. History of chronic diastolic congestive heart failure: Will hold the Lasix for now as the patient has hyponatremia.Monitor for volume overload. DVT prophylaxis: Heparin subcutaneously. DISPOSITION: med tele. PT/OT prior to discharge. Admission and Anticipated Discharge Date Admission Date: August 19, 2021 Subjective Patient seen in follow-up of "burning in chest"/esophagitis, positive COVID Currently patient is lying in bed, in no acute distress She is breathing comfortably on room air Reports feeling better, also reports burning in chest with hot foods only No fevers, chills, chest pain, shortness of breath, abdominal pain, nausea vomiting Review of Systems Review of Systems: All systems reviewed & are unremarkable except as noted in Subjective Physical Exam Physical Exam: GENERAL:Elderly frail female, in no acute distress HEENT: NC/AT. EOMI. Pupils equal, round and reactive to light. Oral mucosa moist. NECK: No JVD, no neck masses. CARDIOVASCULAR: S1 and S2 heard. Regular rate and rhythm. No murmur, no gallop. RESPIRATORY SYSTEM: Normal AP diameter. No accessory muscle use. No wheezing, no crackles. ABDOMEN: Soft. Bowel sounds are present, nontender, no distention. CENTRAL NERVOUS SYSTEM: Alert and awake. Hard of hearing. Speech is clear. No facial droop. Obeys simple commands. Moves extremities. EXTREMITIES: No edema, no erythema. Results & Data Results & Data ([facility]) Vital Signs (Past 12 Hours) Vital Signs Temp Pulse Resp BP Pulse Ox 08/20/21 11:58 36.8 C 60 18 123/71 91 08/20/21 07:24 36.6 C 68 18 118/62 90 Laboratory Results 08/20/21 08/20/21 08/20/21 Range/Units 16:40 11:49 08:17 WBC (4.8-10.8) K/uL RBC (4.2-5.4) M/uL Hgb (12.0-16.0) g/dL Hct (37-47) % MCV (80-100) fL MCH (25-34) pg MCHC (32-36) g/dL RDW Std Deviation (36.4-46.3) fL RDW Coeff of Jonathan (11.5-14.5) % Plt Count (130-400) K/uL MPV (7.4-10.4) fL Sodium 130 L (136-145) mmol/L Potassium 4.3 (3.5-5.1) mmol/L Chloride 101 (98-107) mmol/L Carbon Dioxide 24 (21-32) mmol/L Anion Gap 5 (3-11) BUN 28 H (6-23) mg/dl Creatinine 1.19 (0.6-1.2) mg/dl Est Cr Clr Drug Dosing 24.5 ml/min Est GFR ( Amer) 47.2 ml/min Est GFR (Non-Af Amer) 40.7 ml/min BUN/Creatinine Ratio 23.5 H (10-20) Glucose 82 (70-99(Fasting)) mg/dl POC Glucose 132 H 85 (70-99) mg/dl Calcium 8.4 L (8.5-10.1) mg/dl Phosphorus 2.7 (2.5-4.9) mg/dl Magnesium 2.0 (1.7-2.4) mg/dl TSH (0.300-4.500) uIu/ml Urine Color Urine Appearance (Clear) Urine pH (4.5-7.5) Ur Specific [place] (1.000-1.030) Urine Protein (Negative) Urine Glucose (UA) (Negative) Urine Ketones (Negative) Urine Blood (Negative) Urine Nitrite (Negative) Urine Bilirubin (Negative) Urine Urobilinogen (Negative) Ur Leukocyte Esterase (Negative) Urine WBC (Auto) (0-5) /hpf Urine RBC (Auto) (0-4) /hpf U Hyaline Cast (Auto) (0-5) /lpf U Epithel Cells (Auto) (0-5) /lpf Urine Bacteria (Auto) (Negative) 08/20/21 08/20/21 08/20/21 Range/Units 08:17 08:06 08:05 WBC 5.70 (4.8-10.8) K/uL RBC 3.51 L (4.2-5.4) M/uL Hgb 11.3 L (12.0-16.0) g/dL Hct 33.2 L (37-47) % MCV 94.6 (80-100) fL MCH 32.2 (25-34) pg MCHC 34.0 (32-36) g/dL RDW Std Deviation 46.9 H (36.4-46.3) fL RDW Coeff of Jonathan 13.6 (11.5-14.5) % Plt Count 176 (130-400) K/uL MPV 10.5 H (7.4-10.4) fL Sodium (136-145) mmol/L Potassium (3.5-5.1) mmol/L Chloride (98-107) mmol/L Carbon Dioxide (21-32) mmol/L Anion Gap (3-11) BUN (6-23) mg/dl Creatinine (0.6-1.2) mg/dl Est Cr Clr Drug Dosing ml/min Est GFR ( Amer) ml/min Est GFR (Non-Af Amer) ml/min BUN/Creatinine Ratio (10-20) Glucose (70-99(Fasting)) mg/dl POC Glucose 77 64 L* (70-99) mg/dl Calcium (8.5-10.1) mg/dl Phosphorus (2.5-4.9) mg/dl Magnesium (1.7-2.4) mg/dl TSH (0.300-4.500) uIu/ml Urine Color Urine Appearance (Clear) Urine pH (4.5-7.5) Ur Specific [place] (1.000-1.030) Urine Protein (Negative) Urine Glucose (UA) (Negative) Urine Ketones (Negative) Urine Blood (Negative) Urine Nitrite (Negative) Urine Bilirubin (Negative) Urine Urobilinogen (Negative) Ur Leukocyte Esterase (Negative) Urine WBC (Auto) (0-5) /hpf Urine RBC (Auto) (0-4) /hpf U Hyaline Cast (Auto) (0-5) /lpf U Epithel Cells (Auto) (0-5) /lpf Urine Bacteria (Auto) (Negative) 08/20/21 08/20/21 08/19/21 Range/Units 07:44 07:43 22:44 WBC (4.8-10.8) K/uL RBC (4.2-5.4) M/uL Hgb (12.0-16.0) g/dL Hct (37-47) % MCV (80-100) fL MCH (25-34) pg MCHC (32-36) g/dL RDW Std Deviation (36.4-46.3) fL RDW Coeff of Jonathan (11.5-14.5) % Plt Count (130-400) K/uL MPV (7.4-10.4) fL Sodium (136-145) mmol/L Potassium (3.5-5.1) mmol/L Chloride (98-107) mmol/L Carbon Dioxide (21-32) mmol/L Anion Gap (3-11) BUN (6-23) mg/dl Creatinine (0.6-1.2) mg/dl Est Cr Clr Drug Dosing ml/min Est GFR ( Amer) ml/min Est GFR (Non-Af Amer) ml/min BUN/Creatinine Ratio (10-20) Glucose (70-99(Fasting)) mg/dl POC Glucose 58 L* 49 L* 79 (70-99) mg/dl Calcium (8.5-10.1) mg/dl Phosphorus (2.5-4.9) mg/dl Magnesium (1.7-2.4) mg/dl TSH (0.300-4.500) uIu/ml Urine Color Urine Appearance (Clear) Urine pH (4.5-7.5) Ur Specific [place] (1.000-1.030) Urine Protein (Negative) Urine Glucose (UA) (Negative) Urine Ketones (Negative) Urine Blood (Negative) Urine Nitrite (Negative) Urine Bilirubin (Negative) Urine Urobilinogen (Negative) Ur Leukocyte Esterase (Negative) Urine WBC (Auto) (0-5) /hpf Urine RBC (Auto) (0-4) /hpf U Hyaline Cast (Auto) (0-5) /lpf U Epithel Cells (Auto) (0-5) /lpf Urine Bacteria (Auto) (Negative) 08/19/21 08/19/21 08/19/21 Range/Units 19:17 19:17 10:51 WBC (4.8-10.8) K/uL RBC (4.2-5.4) M/uL Hgb (12.0-16.0) g/dL Hct (37-47) % MCV (80-100) fL MCH (25-34) pg MCHC (32-36) g/dL RDW Std Deviation (36.4-46.3) fL RDW Coeff of Jonathan (11.5-14.5) % Plt Count (130-400) K/uL MPV (7.4-10.4) fL Sodium 127 L (136-145) mmol/L Potassium 4.5 (3.5-5.1) mmol/L Chloride 99 (98-107) mmol/L Carbon Dioxide 23 (21-32) mmol/L Anion Gap 5 (3-11) BUN 33 H (6-23) mg/dl Creatinine 1.27 H (0.6-1.2) mg/dl Est Cr Clr Drug Dosing 22.9 ml/min Est GFR ( Amer) 43.6 ml/min Est GFR (Non-Af Amer) 37.6 ml/min BUN/Creatinine Ratio 26.0 H (10-20) Glucose 77 (70-99(Fasting)) mg/dl POC Glucose (70-99) mg/dl Calcium 8.4 L (8.5-10.1) mg/dl Phosphorus (2.5-4.9) mg/dl Magnesium (1.7-2.4) mg/dl TSH 3.325 (0.300-4.500) uIu/ml Urine Color Yellow Urine Appearance Cloudy A (Clear) Urine pH 6.5 (4.5-7.5) Ur Specific [place] > 1.045 H (1.000-1.030) Urine Protein 1+ H (Negative) Urine Glucose (UA) Negative (Negative) Urine Ketones Trace H (Negative) Urine Blood Negative (Negative) Urine Nitrite Negative (Negative) Urine Bilirubin Negative (Negative) Urine Urobilinogen Negative (Negative) Ur Leukocyte Esterase 2+ H (Negative) Urine WBC (Auto) >30 H (0-5) /hpf Urine RBC (Auto) 0-4 (0-4) /hpf U Hyaline Cast (Auto) 1-5 (0-5) /lpf U Epithel Cells (Auto) 0-5 (0-5) /lpf Urine Bacteria (Auto) 4+ H (Negative) Medications Administered Current Inpatient Medications Acetaminophen (Acetaminophen 325 Mg Tab) 650 mg PO Q4H PRN PRN Reason: Pain or Fever Stop: 09/18/21 05:40 Dextrose (Dextrose 50% 50 Ml Syringe) 25 - 50 ml IV UD PRN; Protocol PRN Reason: Hypoglycemia Protocol Stop: 09/18/21 06:29 Glucagon (Glucagon For Inj 1 Mg Vial) 1 mg IM UD PRN; Protocol PRN Reason: Hypoglycemia Protocol Stop: 09/18/21 06:29 Glucose (Glucose 40% Gel 15 Gm Tube) 15 - 30 gm PO UD PRN; Protocol PRN Reason: Hypoglycemia Protocol Stop: 09/18/21 06:29 Glucose (Glucose 10 Tabs/Tube) 4 - 8 tabs PO UD PRN; Protocol PRN Reason: Hypoglycemia Protocol Stop: 09/18/21 06:29 Heparin Sodium (Porcine) (Heparin Sod 5,000 Unit/0.5 Ml Vial) 5,000 units SQ Q8 SHARA Stop: 09/18/21 05:59 Last Admin: 08/20/21 12:56 Dose: 5,000 units Documented by: Pantoprazole Sodium 40 mg/ (Syringe) 10 mls @ 5 mls/min IV BID [facility], [facility]1983 Stop: 09/18/21 08:59 Last Admin: 08/20/21 08:03 Dose: 5 mls/min Documented by: Sodium Chloride (Nss 1000ml) 1,000 mls @ 60 mls/hr IV .[id number] [facility]1983 Stop: 08/21/21 00:19 Last Admin: 08/20/21 10:12 Dose: 60 mls/hr Documented by: Ceftriaxone Sodium 1,000 mg/ (Dextrose) 60 mls @ 100 mls/hr IV Q24H SHARA; Pr otocol Stop: 08/25/21 18:44 Insulin Aspart (Insulin Aspart Per Unit) 0 units SC ACHS [facility]1983 Stop: 09/18/21 07:29 Last Admin: 08/20/21 16:45 Dose: Not Given Documented by: Insulin Glargine (Insulin Glargine Solostar 100 Units/Ml 3 Ml Pen) 4 units SC HS [facility]1983 Stop: 09/18/21 20:59 Levothyroxine Sodium (Levothyroxine Sodium 50 Mcg Tablet) 50 mcg PO DAILYBB [facility] 1928[facility]1983 Stop: 09/18/21 10:14 Last Admin: 08/20/21 06:16 Dose: 50 mcg Documented by: Lisinopril (Lisinopril 40 Mg Tab) 40 mg PO DAILY [facility]1983 Stop: 09/18/21 10:29 Last Admin: 08/20/21 08:01 Dose: 40 mg Documented by: Metoprolol Succinate (Metoprolol Succ 50mg Ext Rel Tab) 100 mg PO DAILY [facility]1983 Stop: 09/18/21 10:29 Last Admin: 08/20/21 08:01 Dose: 100 mg Documented by: Miscellaneous (Carbohydrates For Hypoglycemia ) 15 - 30 gm PO UD PRN PRN Reason: Hypoglycemia Treatment Stop: 09/18/21 06:29 Last Admin: 08/20/21 07:56 Dose: 15 gm Documented by: Morphine Sulfate (Morphine Sulfate 2 Mg/Ml Carp) 2 mg IV Q6H PRN PRN Reason: Pain Stop: 09/02/21 05:40 Multivitamins (Multivitamin Tab) 1 tab PO QAM [facility]1983 Stop: 09/19/21 08:59 Last Admin: 08/20/21 07:57 Dose: 1 tab Documented by: Nifedipine (Nifedipine Extended Rel 30 Mg Tabcr) 30 mg PO DAILY [facility]1983 Stop: 09/18/21 10:29 Last Admin: 08/20/21 08:01 Dose: 30 mg Documented by: Nitroglycerin (Nitroglycerin Sl 0.4 Mg/Tab Tab) 0.4 mg SL UD PRN PRN Reason: Chest Pain Stop: 09/18/21 05:40 Olanzapine (Olanzapine 10 Mg/2.1 Ml Sdv) 2.5 mg IM Q4H PRN PRN Reason: Anxiety/Agitation Stop: 09/18/21 19:42 Ondansetron HCl (Ondansetron Inj 2 Mg/Ml 2 Ml Vial) 4 mg IV Q6H PRN PRN Reason: Nausea Stop: 09/18/21 05:40 Last Admin: 08/19/21 06:46 Dose: 4 mg Documented by: Sucralfate (Sucralfate 1 Gm Tab) 1 gm PO QID [facility]1983 Stop: 09/18/21 08:59 Last Admin: 08/20/21 16:45 Dose: 1 gm Documented by: Vitamin D (Cholecalciferol 1,000 Units 25 Mcg Tab) 1,000 units PO DAILY [facility]1983 Stop: 09/19/21 08:59 Last Admin: 08/20/21 07:58 Dose: 1,000 units Documented by:
[2021-08-20] MEDS: cefTRIAXone SODIUM 1,000 MG in DEXTROSE 5% 50 ML IV SCH (20:36)
[2021-08-20] MEDS: INSULIN GLARGINE SOLOSTAR 100 UNITS/ML 3 ML PEN SC SCH (21:10)
[2021-08-21] MEDS ORDERED: COUGH DROP (SUGAR FREE) LOZ 24 LOZ/1 BOX BUCCAL STA (02:30)
[2021-08-21] MEDS ORDERED: COUGH DROP (SUGAR FREE) LOZ 24 LOZ/1 BOX BUCCAL PRN (03:38)
[2021-08-21] MEDS: LEVOTHYROXINE SODIUM 50 MCG TABLET PO SCH (06:24)
[2021-08-21 06:31] LABS: Hematocrit (blood only) 32.7 % (37-47); Hemoglobin 11.2 g/dL (12.0-16.0); Mean Corpuscular Hemoglobin 31.7 pg (25-34); Mean Corpuscular Hgb Conc 34.3 g/dL (32-36); Mean Corpuscular Volume 92.6 fL (80-100); Mean Platelet Volume 10.7 fL (7.4-10.4); Platelet Count 199 K/uL (130-400); RDW Coefficient of Variation 13.7 % (11.5-14.5); RDW Standard Deviation 46.1 fL (36.4-46.3); Red Blood Count 3.53 M/uL (4.2-5.4); White Blood Count 8.38 K/uL (4.8-10.8)
[2021-08-21] MEDS: HEPARIN SOD 5,000 UNIT/0.5 ML VIAL SQ SCH ×3 (06:49→20:40)
[2021-08-21 06:58] LABS: BUN Creatinine Ratio 19.4 (10-20); Calcium 8.1 mg/dl (8.5-10.1); Creatinine Clr Calc Pharmacy 27.1 ml/min; Est GFR (African American) 53.1 ml/min; Est GFR (Non-African American) 45.8 ml/min; Magnesium 1.9 mg/dl (1.7-2.4); Phosphorus 2.7 mg/dl (2.5-4.9); Potassium 4.3 mmol/L (3.5-5.1)
[2021-08-21] MEDS: INSULIN ASPART PER UNIT SC SCH ×4 (08:20→20:54)
[2021-08-21] MEDS: SUCRALFATE 1 GM TAB PO SCH ×4 (08:27→20:40)
[2021-08-21] MEDS: METOPROLOL SUCC 50MG EXT REL TAB PO SCH (08:28)
[2021-08-21] MEDS: CHOLECALCIFEROL 1,000 UNITS 25 MCG TAB PO SCH (08:28)
[2021-08-21] MEDS: MULTIVITAMIN TAB PO SCH (08:28)
[2021-08-21] MEDS: lisinopril 40 MG TAB PO SCH (08:28)
[2021-08-21] MEDS: NIFEdipine EXTENDED REL 30 MG TABCR PO SCH (08:29)
[2021-08-21] MEDS: PANTOprazole 40 MG in SYRINGE 0 ML IV SCH ×2 (08:29→20:40)
--- NOTE | 2021-08-21 15:40 | Hospitalist Progress Note ---
Date of Service August 21, 2021 Assessment & Plan (1) Esophagitis: (2) COVID-19: Plan: This is an 89-year-old female who was recently diagnosed with COVID and started on Paxlovid, comes with burning sensation in the chest and throat pain. 1. Burning sensation with chest pain and throat pain: CTA chest, no PE, troponin is negative. EKG, no acute findings. Most likely secondary to reflux symptoms as CT scan is showing esophagitis. Received Pepcid and Maalox in the ER. Started Protonix and sucralfate on admission. Full liquid diet and monitor in the hospital. The patient cannot have Paxlovid in the hospital. Burning sensation much improved and diet was advanced. 2. +COVID:Patient not vaccinated, per family. Saturating well on room air. CTA chest is unremarkable. Will monitor. 3. Hyponatremia: Sodium 124 on admission, probably because of poor intake from her symptoms from her COVID. Got fluids in the ER. Checked serum osmolality, urine osmolality, and serum sodium level Current na improved at 131 Consult Nephrology if poor improvement 4. UTI, POA Ucultx positive for Klebsiella, cont. ceftriaxone while inpt 5. metabolic encephalopathy vs delirium - resolved - pt pulling IV lines at night, confused 6. Diabetes: Hold her p.o. medications. Continue her Lantus. Placed on insulin sliding scale. Follow blood sugars, current HbA1c 6.2% 7. FERNANDO on Chronic kidney disease stage III: resolved Baseline creatinine is around 1.1- 1.2, on admission creatinine is 1.5. Got fluids. Cr back to baseline. Follow BMP. 8. Hypothyroidism: Continue home Synthroid. 9. Hypertension: Her Nifedipine was decreased from 60 to 30 when she was started on Paxlovid for 8 days. Will continue 30 mg here Continue, lisinopril and metoprolol. Will monitor the blood pressure. 10. History of chronic diastolic congestive heart failure: Will hold the Lasix for now as the patient has hyponatremia.Monitor for volume overload. DVT prophylaxis: Heparin subcutaneously. DISPOSITION: med tele. PT/OT prior to discharge. Admission and Anticipated Discharge Date Admission Date: August 19, 2021 Subjective Patient seen in follow-up of "burning in chest"/esophagitis, positive COVID Currently patient is lying in bed, in no acute distress She is breathing comfortably on room air Reports feeling better, denies any more burning in chest, diet was advanced No fevers, chills, chest pain, shortness of breath, abdominal pain, nausea vomiting Review of Systems Review of Systems: All systems reviewed & are unremarkable except as noted in Subjective Physical Exam Physical Exam: GENERAL:Elderly frail female, in no acute distress HEENT: NC/AT. EOMI. Pupils equal, round and reactive to light. Oral mucosa moist. NECK: No JVD, no neck masses. CARDIOVASCULAR: S1 and S2 heard. Regular rate and rhythm. No murmur, no gallop. RESPIRATORY SYSTEM: Normal AP diameter. No accessory muscle use. No wheezing, no crackles. ABDOMEN: Soft. Bowel sounds are present, nontender, no distention. CENTRAL NERVOUS SYSTEM: Alert and awake. Hard of hearing. Speech is clear. No facial droop. Obeys simple commands. Moves extremities. EXTREMITIES: No edema, no erythema. Results & Data Results & Data ([facility]) Vital Signs (Past 12 Hours) Vital Signs Temp Pulse Pulse Resp BP Pulse Ox 08/21/21 14:57 69 08/21/21 12:56 95 08/21/21 08:04 36.7 C 70 20 136/66 94 08/21/21 07:32 66 08/21/21 04:14 36.7 C 67 20 133/68 95 Laboratory Results 08/21/21 08/21/21 08/21/21 Range/Units 11:21 05:33 05:33 WBC 8.38 (4.8-10.8) K/uL RBC 3.53 L (4.2-5.4) M/uL Hgb 11.2 L (12.0-16.0) g/dL Hct 32.7 L (37-47) % MCV 92.6 (80-100) fL MCH 31.7 (25-34) pg MCHC 34.3 (32-36) g/dL RDW Std Deviation 46.1 (36.4-46.3) fL RDW Coeff of Jonathan 13.7 (11.5-14.5) % Plt Count 199 (130-400) K/uL MPV 10.7 H (7.4-10.4) fL Sodium 131 L (136-145) mmol/L Potassium 4.3 (3.5-5.1) mmol/L Chloride 104 (98-107) mmol/L Carbon Dioxide 22 (21-32) mmol/L Anion Gap 5 (3-11) BUN 21 (6-23) mg/dl Creatinine 1.08 (0.6-1.2) mg/dl Est Cr Clr Drug Dosing 27.1 ml/min Est GFR ( Amer) 53.1 ml/min Est GFR (Non-Af Amer) 45.8 ml/min BUN/Creatinine Ratio 19.4 (10-20) Glucose 103 H (70-99(Fasting)) mg/dl POC Glucose 197 H (70-99) mg/dl Calcium 8.1 L (8.5-10.1) mg/dl Phosphorus 2.7 (2.5-4.9) mg/dl Magnesium 1.9 (1.7-2.4) mg/dl 08/20/21 08/20/21 Range/Units 20:39 16:40 WBC (4.8-10.8) K/uL RBC (4.2-5.4) M/uL Hgb (12.0-16.0) g/dL Hct (37-47) % MCV (80-100) fL MCH (25-34) pg MCHC (32-36) g/dL RDW Std Deviation (36.4-46.3) fL RDW Coeff of Jonathan (11.5-14.5) % Plt Count (130-400) K/uL MPV (7.4-10.4) fL Sodium (136-145) mmol/L Potassium (3.5-5.1) mmol/L Chloride (98-107) mmol/L Carbon Dioxide (21-32) mmol/L Anion Gap (3-11) BUN (6-23) mg/dl Creatinine (0.6-1.2) mg/dl Est Cr Clr Drug Dosing ml/min Est GFR ( Amer) ml/min Est GFR (Non-Af Amer) ml/min BUN/Creatinine Ratio (10-20) Glucose (70-99(Fasting)) mg/dl POC Glucose 134 H 132 H (70-99) mg/dl Calcium (8.5-10.1) mg/dl Phosphorus (2.5-4.9) mg/dl Magnesium (1.7-2.4) mg/dl Medications Administered Current Inpatient Medications Acetaminophen (Acetaminophen 325 Mg Tab) 650 mg PO Q4H PRN PRN Reason: Pain or Fever Stop: 09/18/21 05:40 Last Admin: 08/21/21 02:37 Dose: 650 mg Documented by: Dextrose (Dextrose 50% 50 Ml Syringe) 25 - 50 ml IV UD PRN; Protocol PRN Reason: Hypoglycemia Protocol Stop: 09/18/21 06:29 Glucagon (Glucagon For Inj 1 Mg Vial) 1 mg IM UD PRN; Protocol PRN Reason: Hypoglycemia Protocol Stop: 09/18/21 06:29 Glucose (Glucose 40% Gel 15 Gm Tube) 15 - 30 gm PO UD PRN; Protocol PRN Reason: Hypoglycemia Protocol Stop: 09/18/21 06:29 Glucose (Glucose 10 Tabs/Tube) 4 - 8 tabs PO UD PRN; Protocol PRN Reason: Hypoglycemia Protocol Stop: 09/18/21 06:29 Heparin Sodium (Porcine) (Heparin Sod 5,000 Unit/0.5 Ml Vial) 5,000 units SQ Q8 [facility] Stop: 09/18/21 05:59 Last Admin: 08/21/21 12:12 Dose: 5,000 units Documented by: Pantoprazole Sodium 40 mg/ (Syringe) 10 mls @ 5 mls/min IV BID [facility] Stop: 09/18/21 08:59 Last Admin: 08/21/21 08:29 Dose: 5 mls/min Documented by: Ceftriaxone Sodium 1,000 mg/ (Dextrose) 60 mls @ 120 mls/hr IV Q24H [facility]; Protocol Stop: 08/25/21 18:59 Last Infusion: 08/20/21 21:12 Dose: Infused Documented by: Insulin Aspart (Insulin Aspart Per Unit) 0 units SC ACHS [facility] Stop: 09/18/21 07:29 Last Admin: 08/21/21 12:06 Dose: 5 units Documented by: Insulin Glargine (Insulin Glargine Solostar 100 Units/Ml 3 Ml Pen) 4 units SC HS [facility] Stop: 09/18/21 20:59 Last Admin: 08/20/21 21:10 Dose: 4 units Documented by: Levothyroxine Sodium (Levothyroxine Sodium 50 Mcg Tablet) 50 mcg PO DAILYBB [facility] Stop: 09/18/21 10:14 Last Admin: 08/21/21 06:24 Dose: 50 mcg Documented by: Lisinopril (Lisinopril 40 Mg Tab) 40 mg PO DAILY [facility] Stop: 09/18/21 10:29 Last Admin: 08/21/21 08:28 Dose: 40 mg Documented by: Menthol (Cough Drop (Sugar Free) Carolyn 24 Carolyn/1 Box) 1 carolyn BUCCAL PRN PRN PRN Reason: Sore Throat Stop: 09/20/21 03:37 Last Admin: 08/21/21 06:24 Dose: 1 carolyn Documented by: Metoprolol Succinate (Metoprolol Succ 50mg Ext Rel Tab) 100 mg PO DAILY [facility] Stop: 09/18/21 10:29 Last Admin: 08/21/21 08:28 Dose: 100 mg Documented by: Miscellaneous (Carbohydrates For Hypoglycemia ) 15 - 30 gm PO UD PRN PRN Reason: Hypoglycemia Treatment Stop: 09/18/21 06:29 Last Admin: 08/20/21 07:56 Dose: 15 gm Documented by: Morphine Sulfate (Morphine Sulfate 2 Mg/Ml Carp) 2 mg IV Q6H PRN PRN Reason: Pain Stop: 09/02/21 05:40 Multivitamins (Multivitamin Tab) 1 tab PO QAM [facility] Stop: 09/19/21 08:59 Last Admin: 08/21/21 08:28 Dose: 1 tab Documented by: Nifedipine (Nifedipine Extended Rel 30 Mg Tabcr) 30 mg PO DAILY [facility] Stop: 09/18/21 10:29 Last Admin: 08/21/21 08:29 Dose: 30 mg Documented by: Nitroglycerin (Nitroglycerin Sl 0.4 Mg/Tab Tab) 0.4 mg SL UD PRN PRN Reason: Chest Pain Stop: 09/18/21 05:40 Olanzapine (Olanzapine 10 Mg/2.1 Ml Sdv) 2.5 mg IM Q4H PRN PRN Reason: Anxiety/Agitation Stop: 09/18/21 19:42 Ondansetron HCl (Ondansetron Inj 2 Mg/Ml 2 Ml Vial) 4 mg IV Q6H PRN PRN Reason: Nausea Stop: 09/18/21 05:40 Last Admin: 08/19/21 06:46 Dose: 4 mg Documented by: Sucralfate (Sucralfate 1 Gm Tab) 1 gm PO QID [facility] Stop: 09/18/21 08:59 Last Admin: 08/21/21 12:12 Dose: 1 gm Documented by: Vitamin D (Cholecalciferol 1,000 Units 25 Mcg Tab) 1,000 units PO DAILY [facility] Stop: 09/19/21 08:59 Last Admin: 08/21/21 08:28 Dose: 1,000 units Documented by:
[2021-08-21] MEDS: cefTRIAXone SODIUM 1,000 MG in DEXTROSE 5% 50 ML IV SCH (18:33)
[2021-08-21] MEDS: INSULIN GLARGINE SOLOSTAR 100 UNITS/ML 3 ML PEN SC SCH (20:40)
[2021-08-22] MEDS: HEPARIN SOD 5,000 UNIT/0.5 ML VIAL SQ SCH ×2 (06:29→15:47)
[2021-08-22] MEDS: LEVOTHYROXINE SODIUM 50 MCG TABLET PO SCH (06:29)
--- NOTE | 2021-08-22 07:34 | Electrocardiogram Report ---
Test Reason : Blood Pressure : / mmHG Vent. Rate : 072 BPM Atrial Rate : 072 BPM P-R Int : 190 ms QRS Dur : 074 ms QT Int : 420 ms P-R-T Axes : 058 000 047 degrees QTc Int : 459 ms Normal sinus rhythm Nonspecific T wave abnormality Abnormal ECG When compared with ECG of 20-AUG-2021 06:12, QT has lengthened Confirmed by Gamaliel Whatley ([id number]) on 08/22/2021 7:34:38 AM Referred By: REFERRED SELF Confirmed By:Gamaliel Whatley
[2021-08-22 08:45] LABS: BUN Creatinine Ratio 12.8 (10-20); Calcium 8.5 mg/dl (8.5-10.1); Est GFR (African American) 48.2 ml/min; Est GFR (Non-African American) 41.6 ml/min; Magnesium 1.7 mg/dl (1.7-2.4); Phosphorus 2.6 mg/dl (2.5-4.9); Potassium 3.7 mmol/L (3.5-5.1)
[2021-08-22 08:56] LABS: Hematocrit (blood only) 35.6 % (37-47); Mean Corpuscular Hemoglobin 31.3 pg (25-34); Mean Corpuscular Hgb Conc 33.7 g/dL (32-36); Mean Corpuscular Volume 92.7 fL (80-100); Mean Platelet Volume 10.7 fL (7.4-10.4); Platelet Count 276 K/uL (130-400); RDW Coefficient of Variation 13.6 % (11.5-14.5); RDW Standard Deviation 45.7 fL (36.4-46.3); Red Blood Count 3.84 M/uL (4.2-5.4); White Blood Count 7.22 K/uL (4.8-10.8)
[2021-08-22] MEDS: SUCRALFATE 1 GM TAB PO SCH ×2 (09:16→11:54)
[2021-08-22] MEDS: PANTOprazole 40 MG in SYRINGE 0 ML IV SCH (09:16)
[2021-08-22] MEDS: NIFEdipine EXTENDED REL 30 MG TABCR PO SCH (09:16)
[2021-08-22] MEDS: MULTIVITAMIN TAB PO SCH (09:16)
[2021-08-22] MEDS: CHOLECALCIFEROL 1,000 UNITS 25 MCG TAB PO SCH (09:17)
[2021-08-22] MEDS: lisinopril 40 MG TAB PO SCH (09:17)
[2021-08-22] MEDS: METOPROLOL SUCC 50MG EXT REL TAB PO SCH (09:17)
[2021-08-22] MEDS: INSULIN ASPART PER UNIT SC SCH ×2 (09:36→12:19)
--- NOTE | 2021-08-22 10:56 | Hospitalist Progress Note ---
Date of Service August 22, 2021 Assessment & Plan (1) Esophagitis: (2) COVID-19: Plan: This is an 89-year-old female who was recently diagnosed with COVID and started on Paxlovid, comes with burning sensation in the chest and throat pain. 1. Burning sensation with chest pain and throat pain: CTA chest, no PE, troponin is negative. EKG, no acute findings. Most likely secondary to reflux symptoms as CT scan is showing esophagitis. Received Pepcid and Maalox in the ER. Started Protonix and sucralfate on admission. Heartburn resolved, diet advanced. Patient may need endoscopy as outpatient. 2. +COVID:Patient not vaccinated, per family. Saturating well on room air. CTA chest is unremarkable. Will monitor. 3. Hyponatremia: Sodium 124 on admission, probably because of poor intake from her symptoms from her COVID. Got fluids in the ER. Checked serum osmolality, urine osmolality, and serum sodium level Current na improved at 131 For now, recommend to decrease home Lasix to 3 times in a week, instead of daily Outpt follow up. 4. ?UTI, POA vs. asymptomatic bacteriuria - pt denies any urinary symptoms Ucultx positive for Klebsiella, cont. ceftriaxone while inpt (finished 3 day course) 5. metabolic encephalopathy vs delirium - resolved - pt pulling IV lines at night, confused 6. Diabetes: Hold her p.o. medications. Continue her Lantus. Placed on insulin sliding scale. Follow blood sugars, current HbA1c 6.2% 7. FERNANDO on Chronic kidney disease stage III: resolved Baseline creatinine is around 1.1- 1.2, on admission creatinine is 1.5. Got fluids. Cr back to baseline. Follow BMP. 8. Hypothyroidism: Continue home Synthroid. 9. Hypertension: Her Nifedipine was decreased from 60 to 30 when she was started on Paxlovid for 8 days. Will continue 30 mg here Continue, lisinopril and metoprolol. Will monitor the blood pressure. 10. History of chronic diastolic congestive heart failure: Will hold the Lasix for now as the patient has hyponatremia.Monitor for volume overload. Recommend to resume home Lasix to 3 times in a week, instead of daily. Outpt follow up. DVT prophylaxis: Heparin subcutaneously. DISPOSITION: med tele. PT/OT prior to discharge. Admission and Anticipated Discharge Date Admission Date: August 19, 2021 Subjective Patient seen in follow-up of "burning in chest"/esophagitis, positive COVID Currently patient is lying in bed, in no acute distress She is breathing comfortably on room air Reports feeling better, denies any more heartburn No fevers, chills, chest pain, shortness of breath, abdominal pain, nausea vomiting Review of Systems Review of Systems: All systems reviewed & are unremarkable except as noted in Subjective Physical Exam Physical Exam: GENERAL:Elderly frail female, in no acute distress HEENT: NC/AT. EOMI. Pupils equal, round and reactive to light. Oral mucosa moist. NECK: No JVD, no neck masses. CARDIOVASCULAR: S1 and S2 heard. Regular rate and rhythm. No murmur, no gallop. RESPIRATORY SYSTEM: Normal AP diameter. No accessory muscle use. No wheezing, no crackles. ABDOMEN: Soft. Bowel sounds are present, nontender, no distention. CENTRAL NERVOUS SYSTEM: Alert and awake. Hard of hearing. Speech is clear. No facial droop. Obeys simple commands. Moves extremities. EXTREMITIES: No edema, no erythema. Results & Data Results & Data ([facility]) Vital Signs (Past 12 Hours) Vital Signs Temp Pulse Pulse Resp BP Pulse Ox 08/22/21 08:30 36.6 C 79 18 121/65 96 08/22/21 08:00 73 08/22/21 03:30 36.7 C 83 18 128/61 95 08/21/21 23:08 36.6 C 69 20 121/67 92 Laboratory Results 08/22/21 08/22/21 08/22/21 Range/Units 08:24 07:44 07:44 WBC 7.22 (4.8-10.8) K/uL RBC 3.84 L (4.2-5.4) M/uL Hgb 12.0 (12.0-16.0) g/dL Hct 35.6 L (37-47) % MCV 92.7 (80-100) fL MCH 31.3 (25-34) pg MCHC 33.7 (32-36) g/dL RDW Std Deviation 45.7 (36.4-46.3) fL RDW Coeff of Jonathan 13.6 (11.5-14.5) % Plt Count 276 (130-400) K/uL MPV 10.7 H (7.4-10.4) fL Sodium 131 L (136-145) mmol/L Potassium 3.7 (3.5-5.1) mmol/L Chloride 101 (98-107) mmol/L Carbon Dioxide 21 (21-32) mmol/L Anion Gap 9 (3-11) BUN 15 (6-23) mg/dl Creatinine 1.17 (0.6-1.2) mg/dl Est Cr Clr Drug Dosing 25.0 ml/min Est GFR ( Amer) 48.2 ml/min Est GFR (Non-Af Amer) 41.6 ml/min BUN/Creatinine Ratio 12.8 (10-20) Glucose 167 H (70-99(Fasting)) mg/dl POC Glucose 159 H (70-99) mg/dl Calcium 8.5 (8.5-10.1) mg/dl Phosphorus 2.6 (2.5-4.9) mg/dl Magnesium 1.7 (1.7-2.4) mg/dl 08/21/21 08/21/21 08/21/21 Range/Units 20:44 16:41 11:21 WBC (4.8-10.8) K/uL RBC (4.2-5.4) M/uL Hgb (12.0-16.0) g/dL Hct (37-47) % MCV (80-100) fL MCH (25-34) pg MCHC (32-36) g/dL RDW Std Deviation (36.4-46.3) fL RDW Coeff of Jonathan (11.5-14.5) % Plt Count (130-400) K/uL MPV (7.4-10.4) fL Sodium (136-145) mmol/L Potassium (3.5-5.1) mmol/L Chloride (98-107) mmol/L Carbon Dioxide (21-32) mmol/L Anion Gap (3-11) BUN (6-23) mg/dl Creatinine (0.6-1.2) mg/dl Est Cr Clr Drug Dosing ml/min Est GFR ( Amer) ml/min Est GFR (Non-Af Amer) ml/min BUN/Creatinine Ratio (10-20) Glucose (70-99(Fasting)) mg/dl POC Glucose 100 H 83 197 H (70-99) mg/dl Calcium (8.5-10.1) mg/dl Phosphorus (2.5-4.9) mg/dl Magnesium (1.7-2.4) mg/dl 08/21/21 Range/Units 07:55 WBC (4.8-10.8) K/uL RBC (4.2-5.4) M/uL Hgb (12.0-16.0) g/dL Hct (37-47) % MCV (80-100) fL MCH (25-34) pg MCHC (32-36) g/dL RDW Std Deviation (36.4-46.3) fL RDW Coeff of Jonathan (11.5-14.5) % Plt Count (130-400) K/uL MPV (7.4-10.4) fL Sodium (136-145) mmol/L Potassium (3.5-5.1) mmol/L Chloride (98-107) mmol/L Carbon Dioxide (21-32) mmol/L Anion Gap (3-11) BUN (6-23) mg/dl Creatinine (0.6-1.2) mg/dl Est Cr Clr Drug Dosing ml/min Est GFR ( Amer) ml/min Est GFR (Non-Af Amer) ml/min BUN/Creatinine Ratio (10-20) Glucose (70-99(Fasting)) mg/dl POC Glucose 130 H (70-99) mg/dl Calcium (8.5-10.1) mg/dl Phosphorus (2.5-4.9) mg/dl Magnesium (1.7-2.4) mg/dl Medications Administered Current Inpatient Medications Acetaminophen (Acetaminophen 325 Mg Tab) 650 mg PO Q4H PRN PRN Reason: Pain or Fever Stop: 09/18/21 05:40 Last Admin: 08/21/21 02:37 Dose: 650 mg Documented by: Dextrose (Dextrose 50% 50 Ml Syringe) 25 - 50 ml IV UD PRN; Protocol PRN Reason: Hypoglycemia Protocol Stop: 09/18/21 06:29 Glucagon (Glucagon For Inj 1 Mg Vial) 1 mg IM UD PRN; Protocol PRN Reason: Hypoglycemia Protocol Stop: 09/18/21 06:29 Glucose (Glucose 40% Gel 15 Gm Tube) 15 - 30 gm PO UD PRN; Protocol PRN Reason: Hypoglycemia Protocol Stop: 09/18/21 06:29 Glucose (Glucose 10 Tabs/Tube) 4 - 8 tabs PO UD PRN; Protocol PRN Reason: Hypoglycemia Protocol Stop: 09/18/21 06:29 Heparin Sodium (Porcine) (Heparin Sod 5,000 Unit/0.5 Ml Vial) 5,000 units SQ Q8 [facility] Stop: 09/18/21 05:59 Last Admin: 08/22/21 06:29 Dose: 5,000 units Documented by: Pantoprazole Sodium 40 mg/ (Syringe) 10 mls @ 5 mls/min IV BID [facility] Stop: 09/18/21 08:59 Last Admin: 08/22/21 09:16 Dose: 5 mls/min Documented by: Ceftriaxone Sodium 1,000 mg/ (Dextrose) 60 mls @ 120 mls/hr IV Q24H [facility]; Protocol Stop: 08/27/21 11:54 Last Infusion: 08/22/21 13:57 Dose: Infused Documented by: Insulin Aspart (Insulin Aspart Per Unit) 0 units SC ACHS [facility] Stop: 09/18/21 07:29 Last Admin: 08/22/21 12:19 Dose: 5 units Documented by: Insulin Glargine (Insulin Glargine Solostar 100 Units/Ml 3 Ml Pen) 4 units SC HS [facility] Stop: 09/18/21 20:59 Last Admin: 08/21/21 20:40 Dose: 4 units Documented by: Levothyroxine Sodium (Levothyroxine Sodium 50 Mcg Tablet) 50 mcg PO DAILYBB [facility] Stop: 09/18/21 10:14 Last Admin: 08/22/21 06:29 Dose: 50 mcg Documented by: Lisinopril (Lisinopril 40 Mg Tab) 40 mg PO DAILY [facility] Stop: 09/18/21 10:29 Last Admin: 08/22/21 09:17 Dose: 40 mg Documented by: Menthol (Cough Drop (Sugar Free) Carolyn 24 Carolyn/1 Box) 1 carolyn BUCCAL PRN PRN PRN Reason: Sore Throat Stop: 09/20/21 03:37 Last Admin: 08/21/21 06:24 Dose: 1 carolyn Documented by: Metoprolol Succinate (Metoprolol Succ 50mg Ext Rel Tab) 100 mg PO DAILY [facility] Stop: 09/18/21 10:29 Last Admin: 06/24/22 09:17 Dose: 100 mg Documented by: Miscellaneous (Carbohydrates For Hypoglycemia ) 15 - 30 gm PO UD PRN PRN Reason: Hypoglycemia Treatment Stop: 09/18/21 06:29 Last Admin: 08/20/21 07:56 Dose: 15 gm Documented by: Morphine Sulfate (Morphine Sulfate 2 Mg/Ml Carp) 2 mg IV Q6H PRN PRN Reason: Pain Stop: 09/02/21 05:40 Multivitamins (Multivitamin Tab) 1 tab PO QAM [facility] Stop: 09/19/21 08:59 Last Admin: 08/22/21 09:16 Dose: 1 tab Documented by: Nifedipine (Nifedipine Extended Rel 30 Mg Tabcr) 30 mg PO DAILY [facility] Stop: 09/18/21 10:29 Last Admin: 08/22/21 09:16 Dose: 30 mg Documented by: Nitroglycerin (Nitroglycerin Sl 0.4 Mg/Tab Tab) 0.4 mg SL UD PRN PRN Reason: Chest Pain Stop: 09/18/21 05:40 Olanzapine (Olanzapine 10 Mg/2.1 Ml Sdv) 2.5 mg IM Q4H PRN PRN Reason: Anxiety/Agitation Stop: 09/18/21 19:42 Ondansetron HCl (Ondansetron Inj 2 Mg/Ml 2 Ml Vial) 4 mg IV Q6H PRN PRN Reason: Nausea Stop: 09/18/21 05:40 Last Admin: 08/19/21 06:46 Dose: 4 mg Documented by: Sucralfate (Sucralfate 1 Gm Tab) 1 gm PO QID [facility] Stop: 09/18/21 08:59 Last Admin: 08/22/21 11:54 Dose: 1 gm Documented by: Vitamin D (Cholecalciferol 1,000 Units 25 Mcg Tab) 1,000 units PO DAILY [facility] Stop: 09/19/21 08:59 Last Admin: 08/22/21 09:17 Dose: 1,000 units Documented by:
[2021-08-22] MEDS ORDERED: MAGNESIUM SULFATE / D5W 1 GM/100 ML BAG IV ONE (11:30)
[2021-08-22] MEDS ORDERED: cefTRIAXone SODIUM 1,000 MG in DEXTROSE 5% 50 ML IV SCH (13:00)
--- NOTE | 2021-08-22 14:07 | Discharge Summary ---
Date of Service August 22, 2021 Admission HPI Per Admitting Provider This is an 89-year-old female with past medical history significant for type 2 diabetes, hyperlipidemia, chronic kidney disease stage III, hypertension, hypothyroidism, chronic rhinitis, uncomplicated bronchiectasis, diastolic dysfunction, reflux esophagitis, osteoporosis, spinal stenosis of lumbar region, vision loss of right eye, history of squamous cell carcinoma in situ, who lives at home with her and son and family. The patient was brought in because of burning sensation in chest and throat. The patient was diagnosed with COVID a few days back and she was started on Paxlovid soon after that. Seems to have taken a couple of doses of Paxlovid and the patient states after taking Paxlovid, she developed severe burning sensation of the chest and also in the throat. She says she cried at home and was brought in here. The patient is very hard of hearing. Her hearing aid is also not working. Tried to call the family, but was not able to reach them. The patient says she has some cough, spitting stuff. Denies any shortness of breath. Denies vomiting, denies any abdominal pain. She says she moved her bowels okay. No headache. Currently, resting comfortably and hemodynamically stable, but still has some burning sensation throughout in the chest. It started after taking Paxlovid. It is very difficult to get history from the patient. The patient is very hard of hearing. Does not know whether she is vaccinated or not. Imaging studies done in the ER showed CTA chest done, there is no PE, but showing esophagitis. No obvious infiltrates of the lung seen on the CAT scan. She is saturating fine on room air. Admission Exam Per Admitting Provider GENERAL: The patient is old and frail, not in acute distress. VITAL SIGNS: Temperature afebrile, pulse 61, respiratory rate 16, blood pressure 136/63, oxygen 97% on room air. HEENT: Pupils equal, round and reactive to light. Oral mucosa moist. NECK: No JVD, no neck masses. CARDIOVASCULAR: S1 and S2 heard. Regular rate and rhythm. No murmur, no gallop. RESPIRATORY SYSTEM: Normal AP diameter. No accessory muscle use. No wheezing, no crackles. ABDOMEN: Soft. Bowel sounds are present, nontender, no distention. CENTRAL NERVOUS SYSTEM: Alert and awake. Hard of hearing. Speech is clear. No facial droop. Obeys simple commands. Moves extremities. EXTREMITIES: No edema, no erythema. Principal Diagnosis Esophagitis Positive COVID-19 Discharge Exam GENERAL:Elderly frail female, in no acute distress HEENT: NC/AT. EOMI. Pupils equal, round and reactive to light. Oral mucosa moist. NECK: No JVD, no neck masses. CARDIOVASCULAR: S1 and S2 heard. Regular rate and rhythm. No murmur, no gallop. RESPIRATORY SYSTEM: Normal AP diameter. No accessory muscle use. No wheezing, no crackles. ABDOMEN: Soft. Bowel sounds are present, nontender, no distention. CENTRAL NERVOUS SYSTEM: Alert and awake. Hard of hearing. Speech is clear. No facial droop. Obeys simple commands. Moves extremities. EXTREMITIES: No edema, no erythema. Discharge Data Allergies Allergy/AdvReac Type Severity Reaction Status Date / Time pioglitazone Allergy Mild SWELLING Unverified 04/05/09 02:42 naproxen Allergy swelling Verified 01/19/13 12:38 of hands and face Consultations 08/19/21 00:17 ED Decision to Admit Stat Ordered Studies 08/18/21 21:18 CT angio chest PE protocol Urgent Impression: 1. No CTA evidence for pulmonary embolus. 2. No acute chest disease. There is breathing motion artifact present. 3. There is underlying mild to moderate centrilobular emphysematous changes particularly involving the upper lobes bilaterally. 4. Evidence for extensive atherosclerotic calcification involving the aortic arch and origin of the right subclavian artery. The findings are highly suspicious for stenosis. 5. Diffuse mucosal thickening involving the entire course of the esophagus and at the GE junction. The findings are suspicious for esophagitis. Follow-up endoscopy is recommended. 08/19/21 10:44 CT head/brain wo con Routine IMPRESSION: 1. No acute intracerebral pathology. 2. Cerebral cortical atrophy and remote small vessel disease. Hospital Course (1) Esophagitis: (2) COVID-19: This is an 89-year-old female who was recently diagnosed with COVID and started on Paxlovid, comes with burning sensation in the chest and throat pain. 1. Burning sensation with chest pain and throat pain: CTA chest, no PE, troponin is negative. EKG, no acute findings. Most likely secondary to reflux symptoms as CT scan is showing esophagitis. Received Pepcid and Maalox in the ER. Started Protonix and sucralfate on admission. Heartburn resolved, diet advanced. Patient may need endoscopy as outpatient. 2. +COVID:Patient not vaccinated, per family. Saturating well on room air. CTA chest is unremarkable. Will monitor. 3. Hyponatremia: Sodium 124 on admission, probably because of poor intake from her symptoms from her COVID. Got fluids in the ER. Checked serum osmolality, urine osmolality, and serum sodium level Current na improved at 131 For now, recommend to decrease home Lasix to 3 times in a week, instead of daily Outpt follow up. 4. ?UTI, POA vs. asymptomatic bacteriuria - pt denies any urinary symptoms Ucultx positive for Klebsiella, cont. ceftriaxone while inpt (finished 3 day course) 5. metabolic encephalopathy vs delirium - resolved - pt pulling IV lines at night, confused 6. Diabetes: Hold her p.o. medications. Continue her Lantus. Placed on insulin sliding scale. Follow blood sugars, current HbA1c 6.2% 7. FERNANDO on Chronic kidney disease stage III: resolved Baseline creatinine is around 1.1- 1.2, on admission creatinine is 1.5. Got fluids. Cr back to baseline. Follow BMP. 8. Hypothyroidism: Continue home Synthroid. 9. Hypertension: Her Nifedipine was decreased from 60 to 30 when she was started on Paxlovid for 8 days. Will continue 30 mg here Continue, lisinopril and metoprolol. Will monitor the blood pressure. 10. History of chronic diastolic congestive heart failure: Will hold the Lasix for now as the patient has hyponatremia.Monitor for volume overload. Recommend to resume home Lasix to 3 times in a week, instead of daily. Outpt follow up. Total Time Total Time Spent Total Time Spent (In Minutes): 40 Discharge Plan Discharge Items Patient Disposition: Home - Home Health Services Reason For Visit: CHEST BURNING Discharge Diagnosis: Esophagitis Positive COVID-19 Activity: Per Instructions section Non-emergency contact: Primary Care Provider Call non-emergency contact if: you have any medication questions and your symptoms worsen Follow-up/Referrals: Tj Lopez DO [Primary Care Provider] - (Date & Time 08/29/2021 1:00 PM Provider Tj Lopez DO Department Family [facility] [address], [place] ) Diet: Other - See Diet Comment Addtl Attending Provider Instructions: Follow-up with your primary care doctor, the appointment was scheduled for you for August 29. Avoid hot, spicy, or acidic foods. You may need endoscopy for further evaluation. Take pantoprazole twice a day, take sucralfate before meals. Recommend to decrease Lasix to 3 times in a week, instead of daily. Closely follow-up with your primary care doctor. Addtl Lead Engineer Provider Instructions: Home Isolation COVID-19 Instructions The following information about Home Isolation is from the CDC Website: https://www.cdc.gov/coronavirus/2019-ncov/hcp/rhpowbjw-eyccrzb-jgxunu.html Stay home except to get medical care People who are mildly ill with COVID-19 are able to isolate at home during their illness. You should restrict activities outside your home, except for getting medical care. Do not go to work, school, or public areas. Avoid using public transportation, ride-sharing, or taxis. Separate yourself from other people and animals in your home People: As much as possible, you should stay in a specific room and away from other people in your home. Also, you should use a separate bathroom, if available. Animals: You should restrict contact with pets and other animals while you are sick with COVID-19, just like you would around other people. Although there have not been reports of pets or other animals becoming sick with COVID-19, it is still recommended that people sick with COVID-19 limit contact with animals until more information is known about the virus. When possible, have another member of your household care for your animals while you are sick. If you are sick with COVID-19, avoid contact with your pet, including petting, snuggling, being kissed or licked, and sharing food. If you must care for your pet or be around animals while you are sick, wash your hands before and after you interact with pets and wear a face mask. Call ahead before visiting your doctor If you have a medical appointment, call the healthcare provider and tell them that you have or may have COVID-19. This will help the healthcare providers office take steps to keep other people from getting infected or exposed. Wear a face mask You should wear a face mask when you are around other people (e.g., sharing a room or vehicle) or pets and before you enter a healthcare providers office. If you are not able to wear a face mask (for example, because it causes trouble breathing), then people who live with you should not stay in the same room with you, or they should wear a face mask if they enter your room. Cover your coughs and sneezes Cover your mouth and nose with a tissue when you cough or sneeze. Throw used tissues in a lined trash can. Immediately wash your hands with soap and water for at least 20 seconds or, if soap and water are not available, clean your hands with an alcohol-based hand air commodore that contains at least 60% alcohol. Clean your hands often Wash your hands often with soap and water for at least 20 seconds, especially after blowing your nose, coughing, or sneezing; going to the bathroom; and before eating or preparing food. If soap and water are not readily available, use an alcohol-based hand air commodore with at least 60% alcohol, covering all surfaces of your hands and rubbing them together until they feel dry. Soap and water are the best option if hands are visibly dirty. Avoid touching your eyes, nose, and mouth with unwashed hands. Avoid sharing personal household items You should not share dishes, drinking glasses, cups, eating utensils, towels, or bedding with other people or pets in your home. After using these items, they should be washed thoroughly with soap and water. Clean all high-touch surfaces everyday High touch surfaces include counters, tabletops, doorknobs, bathroom fixtures, toilets, phones, keyboards, tablets, and bedside tables. Also, clean any surfaces that may have blood, stool, or body fluids on them. Use a household cleaning spray or wipe, according to the label instructions. Labels contain instructions for safe and effective use of the cleaning product including precautions you should take when applying the product, such as wearing gloves and making sure you have good ventilation during use of the product. Monitor your symptoms Seek prompt medical attention if your illness is worsening (e.g., difficulty breathing).Beforeseeking care, call your healthcare provider and tell them that you have, or are being evaluated for, COVID-19. Put on a face mask before you enter the facility. These steps will help the healthcare providers office to keep other people in the office or waiting room from getting infected or exposed. Ask your healthcare provider to call the local or state health department. Persons who are placed under active monitoring or facilitated self- monitoring should follow instructions provided by their local health department or occupational health professionals, as appropriate. When working with your local health department check their available hours. If you have a medical emergency and need to call 911, notify the dispatch personnel that you have, or are being evaluated for COVID-19. If possible, put on a face mask before emergency medical services arrive. Discontinuing home isolation Patients with confirmed COVID-19 should remain under home isolation precautions until the risk of secondary transmission to others is thought to be low. The decision to discontinue home isolation precautions should be made on a zzko-ue-yajy basis, in consultation with healthcare providers and state and local health departments. Coronavirus disease 2019 (COVID-19) is a virus that causes a respiratory illness. It is caused by a coronavirus called 2019 novel coronavirus (2019- nCoV). There are many types of coronavirus. Coronaviruses are a very common cause of bronchitis. They may sometimes cause lung infection(pneumonia). Symptoms can range from mild to severe respiratory illness. These viruses are also foundin some animals. COVID-19 was first found in people in [facility], in late 2019. In 2020, several cases of COVID-19 have been confirmed in the [place] Public health officials are working to find the source. How the virus spreads is not yet fully known. It may be spread through droplets of fluid that a person coughs or sneezes into the air. It may be spread if you touch a surface with virus on it, such as a handle or object, and then touch your mouth. What are the symptoms of COVID-19? Some people have no symptoms or mild symptoms. Symptoms may appear 2 to 14 days after contact with the virus. Symptoms can include: Fever Coughing Trouble breathing What are possible complications from COVID-19? In many cases, this virus can cause infection (pneumonia) in both lungs. In some cases, this can cause . How is COVID-19 diagnosed? Your healthcare provider will ask about your symptoms. He or she will also ask about your recent travel and contact with sick people. Testing for the virus is only done through the [facility]. If yourhealthcare provider thinks you may have COVID- 19, he or she will work with your local health department and the CDC on testing. Follow all instructions from your healthcare provider. COVID-19 is diagnosed by: Nasal and throat swab. A cotton-tipped swab is wiped inside your nose or throat. This is done to check for viruses in your nasal mucus. Sputum culture. A small sample of mucus coughed from your lungs (sputum) is collected if you have a cough. It is checked for the virus. How is COVID-19 treated? There is currently no medicine to treat the virus. Treatment is done to help your body while it fights the virus. This is known as supportive care. Supportive care may include: Pain medicine. These include acetaminophen and ibuprofen. They are used to help ease pain and reduce fever. Bed rest. This helps your body fight the illness. For severe illness, you may need to stay in the hospital. Care during severe illness may include: IV (intravenous) fluids.These are given through a vein to help keep your body hydrated. Oxygen. Supplemental oxygen or ventilation with a breathing machine (ventilator) may be given. This is done to keep enough oxygen in your body. Are you at risk for COVID-19? If youve been to a place where people have been sick with this virus, you are at risk for infection. You are at risk if you: Recently traveled to an affected area Had contact with a sick person who recently traveled to this area Had contact with a person who was diagnosed with COVID-19 How can COVID-19 be prevented? There is no vaccine yet. The best prevention is to not have contact with the virus. The CDC advises that people should not travel to areas where there are COVID-19 outbreaks right now for any reason that is not urgent. To help prevent spreading the infection, wash your hands often, or use an alcohol-basedhand air commodore. If you are in an area with COVID-19: Wash your hands often. Or use an alcohol-based hand air commodore often. Only touch your eyes, nose, or mouth with clean hands. Dont have contact with people who are sick. Follow local instructions about being in public. For example, you may be told to not use public transport for a period of time. Stay away from markets that have live or animals. Wash your hands after touching any animals. Don't touch animals that may be sick. Dont share eating or drinking tools with sick people. Dont kiss someone who is sick. Clean surfaces often with disinfectant. If you were in an area with COVID-19 in the last 14 days: Call your healthcare provider. He or she can talk with local health staff to see what action may be needed. Follow all instructions from your provider. Take your temperature every morning and evening for at least 14 days. This is to check for fever. Keep a record of the readings. Keep watch for symptoms of the virus. Tell your provider right away if you have symptoms. If you were in an area with COVID-19 and have a fever or other symptoms: Dont panic. Keep in mind that other illnesses can cause similar symptoms. Stay away from work, school, and public places. Limit physical contact with family members. Don't kiss anyone or share eating or drinking utensils. Clean surfaces you touch with disinfectant. This is to help prevent the virus from spreading. Call your healthcare provider. Explain that you have been exposed to COVID-19 and have symptoms. Do this before going to any hospital. Wait for instructions. Keep in mind that healthcare staff may wear protective equipment such as masks, gowns, gloves, and eye protection. You may be put in a separate room. This is to prevent the possible virus from spreading. Tell the healthcare staff about recent travel. This includes local travel on public transport. Staff may need to find other people you have been in contact with. Follow all instructions the healthcare staff give you. If you have been diagnosed with COVID-19 Follow all instructions from your healthcare provider. Dont leave your home, except to get medical care. Call your healthcare providers office before going. They can prepare and give you instructions. This will help prevent the virus from spreading. Dont go to work, school, or public areas. Dont use public transport or taxis. Stay away from other people in your home. Have them wear face masks around you. Dont share household items or food. Wear a face mask if you can. This includes at home or in a medical facility. Cover your face with a tissue when you cough or sneeze. Throw the tissue away. Wash your hands. Wash your hands often. Caregivers should: Follow all instructions from healthcare staff. Wear a face mask and protective clothing as advised. Wash hands often. Keep track of the sick persons symptoms. Clean surfaces, fabrics, and laundry thoroughly. Keep other people away from the sick person. When to call your healthcare provider Call your healthcare provider: If youve recently traveled and have symptoms If you have been diagnosed with COVID-19 and your symptoms are worse To learn more To find out more about COVID-19, visit the CDC website at www.cdc.gov/coronavirus/2019-ncov/index.html. 9820-4205 [employer]. [address] [place] [address], [place] [address]. All rights reserved. This information is not intended as a substitute for professional medical care. Always follow your healthcare professional's instructions. This information has been adapted from [employer] Pending Studies at Discharge: No Stand-Alone Forms: [facility], Smoking Cessation Medications and DC Order Prescriptions: New pantoprazole 40 mg tablet,delayed release (DR/EC) 40 mg PO BID Qty: 60 RF: 0 sucralfate 1 gram Tablet 1 g PO QID Qty: 30 RF: 0 Continued Lisinopril (Zestril) 40 MG tablet 40 mg PO DAILY Qty: 0 RF: 0 Metoprolol Succ (Toprol Xl) (Toprol-Xl ) 100 MG [id number] 100 mg PO DAILY Qty: 0 RF: 0 Insulin Glargine (Lantus) VIAL 8 unit SC HS Qty: 0 RF: 0 LEVOTHYROXINE SODIUM 50 MCG tablet 50 mcg PO PRN (Reason: PRN) Qty: 0 RF: 0 MULTIPLE VITAMIN (MULTIVITAMIN) 1 TAB tablet 1 tab PO DAILY Qty: 0 RF: 0 NIFEDIPINE (NIFEDIPINE ER) 30 MG tablet 30 mg PO DAILY Qty: 0 RF: 0 PSYLLIUM (METAMUCIL SMOOTH TEXTURE) 58.6 % POW 1 scoops PO BID PRN (Reason: Constipation) Qty: 0 RF: 0 CHOLECALCIFEROL (Vitamin D) 1,000 INTER.UNIT tablet 1,000 inter.unit PO DAILY Qty: 0 RF: 0 DOCUSATE SODIUM (COLACE) 100 MG capsule 100 mg PO BID Qty: 0 RF: 0 POLYETHYLENE GLYCOL 3350 (MIRALAX) 1 POW POW DAILY Qty: 0 RF: 0 Tradjenta 5 mg tablet 5 mg PO DAILY RF: 0 Changed furosemide 20 mg tablet 20 mg PO 3XWK Qty: 0 RF: 0 Discontinued OMEPRAZOLE 20 MG tablet 20 mg PO HS Qty: 0 RF: 0 Discharge Orders: Discharge Order (Routine); Ordered 08/22/21 Ordered By: Dmitri Tabares Admission Data Admit Date/Time: 08/19/21 01:45 Attending Provider: Dmitri Tabares Admit Provider: Anibal Chavez Primary Care Provider: Tj Lopez Other Providers: Anibal Chavez ; Osmani Carrion
== END 2021-08-22 16:08 | disposition home health service (06) | DRG 391 ==
LOC: ED 20:13 → 2W 08-19 01:45 → SUATTDRO 08-19 01:45 → 2W 08-19 05:37